=== PATIENT | male | born 1960 | race Caucasian/White ===

== ENCOUNTER 2017-10-12 07:29 | Emergency (ER) | payer OTHER ==
[~2017-10-12 07:29] MED LIST: GLUC500T PO; LISI-538 PO; No Home Medications
[2017-10-12] MEDS ORDERED: VITA250L PO (07:35)
[2017-10-12] MEDS ORDERED: ASPI81TA85 PO (07:35)
[2017-10-12] MEDS ORDERED: OXYMETAZOLINE NASAL SPRAY (AFRIN) ONE (08:15)
[2017-10-12 08:56] LABS: ANION GAP 7 MEQ/L (8-16); BLOOD UREA NITROGEN 15 MG/DL (7-18); CALCIUM LEVEL 8.9 MG/DL (8.5-10.1); CARBON DIOXIDE LEVEL 24 MEQ/L (21-32); CHLORIDE LEVEL 100 MEQ/L (98-107); CREATININE FOR GFR 0.76 MG/DL (0.70-1.30); GLOMERULAR FILTRATION RATE > 60.0 (>56); GLUCOSE, FASTING 213 MG/DL (70-105); SODIUM LEVEL 131 MEQ/L (136-145)
[2017-10-12] MEDS ORDERED: METF500T13 PO (09:57)
[2017-10-12] MEDS ORDERED: LISI-538 PO (09:57)
[2017-10-12 10:21] VITALS: BP 186/96
== END 2017-10-12 10:22 | disposition home or self-care (01) ==
LOC: M ED 07:29 → EDBD 07:29 → M ED 10:22
DX: R04.0 Epistaxis (principal); E11.9 Type 2 diabetes mellitus without complications; I25.2 Old myocardial infarction; I25.10 Atherosclerotic heart disease of native coronary artery without angina pectoris; I10 Essential (primary) hypertension; Z79.82 Long term (current) use of aspirin; Z79.899 Other long term (current) drug therapy; Z79.84 Long term (current) use of oral hypoglycemic drugs

== ENCOUNTER 2019-07-31 19:14 | Emergency (ER) | payer OTHER ==
[~2019-07-31] VITALS: Ht 188 cm; Wt 131.8 kg
[~2019-07-31 19:14] MED LIST changes: +ASPI81TA85 PO; +METF500T13 PO; +VITA250L PO
[2019-07-31 19:42] LABS: BASO # 0.1 10^3/uL (0.0-0.2); BASO % 0.7 % (0.0-1.0); EOS # 0.3 10^3/uL (0.0-0.5); EOS % 2.3 % (0.0-3.0); HEMATOCRIT 44.2 % (42.0-52.0); HEMOGLOBIN 14.9 g/dl (13.5-17.5); LYMPH # 2.8 10^3/uL (1.5-5.0); LYMPH % 26.2 % (24.0-44.0); MEAN CORPUSCULAR HEMOGLOBIN 32.1 pg (27.0-33.0); MEAN CORPUSCULAR HGB CONC 33.7 g/dl (32.0-36.5); MEAN CORPUSCULAR VOLUME 95.3 fl (80.0-96.0); MONO # 0.9 10^3/uL (0.0-0.8); MONO % 8.5 % (0.0-5.0); NEUTROPHILS # 6.6 10^3/uL (1.5-8.5); PLATELET COUNT, AUTOMATED 319 10^3/uL (150-450); RED BLOOD COUNT 4.64 10^6/uL (4.30-6.10); WHITE BLOOD COUNT 10.7 10^3/uL (4.0-10.0)
[2019-07-31] MEDS ORDERED: IPRATROPIUM 0.5MG/ALBUTEROL 2.5MG INH SOL UD 3ML (DUONEB)(J7620) NEB ONE (19:45)
[2019-07-31] MEDS ORDERED: ALBUTEROL SULFATE 2.5 MG/0.5 ML INH NEB SOLN INH ONE (19:45)
[2019-07-31 19:57] LABS: INR 0.99; PROTHROMBIN TIME 12.8 SECONDS (11.8-14.0)
--- NOTE | 2019-07-31 19:57 | REP ---
REASON: Chest pain. The technique utilized in obtaining the radiograph has magnified the cardiac silhouette and accentuated the interstitial markings. The superior mediastinal structures are midline. The cardiac silhouette is unremarkable in size, shape, and position. The diaphragmatic surfaces of the lungs are regular, and the costophrenic angles are clear. The pulmonary noyola are clear. The imaged osseous structures are intact. IMPRESSION: There is no acute cardiopulmonary disease. No change from the prior exam of 05/09/2016. Electronically Signed by Sunny Trevino DO 08/01/2019 11:05 A
[2019-07-31 20:06] LABS: ALBUMIN 3.2 GM/DL (3.2-5.2); ALT/SGPT 37 U/L (12-78); BILIRUBIN,DIRECT < 0.1 MG/DL (0.0-0.2); BILIRUBIN,TOTAL 0.2 MG/DL (0.2-1.0); CK-MB VALUE MASS 16.4 NG/ML (<3.6); CPK CREATINE PHOSPHOKINASE 772 U/L (39-308); LIPASE 364 U/L (73-393); MB/CK RELATIVE INDEX 2.12 (< OR =4); TOTAL PROTEIN 7.2 GM/DL (6.4-8.2); TROPONIN I < 0.02 NG/ML (< 0.10)
[2019-07-31] MEDS ORDERED: GI COCKTAIL 50ML BTL(HYOSCYAMINE/MAALOX/LIDOCAINE VISCOUS)(1:3:1) PO ONE (21:45)
[2019-07-31] MEDS ORDERED: dexameTHASONE 20 MG/5 ML VIAL (J1100) IV ONE (21:45)
[2019-07-31 23:35] LABS: CK-MB VALUE MASS 11.9 NG/ML (<3.6); CPK CREATINE PHOSPHOKINASE 598 U/L (39-308); MB/CK RELATIVE INDEX 1.99 (< OR =4); TROPONIN I < 0.02 NG/ML (< 0.10)
[2019-07-31 23:43] LABS: ERYTHROCYTE SEDIMENTATION RATE 10 mm/hr (0-20)
[2019-08-01] MEDS ORDERED: IBUPOTC PO (00:16)
[2019-08-01 00:17] LABS: NT-PRO BNP 405 PG/ML (<125)
[2019-08-01] MEDS ORDERED: PRED20TA PO (00:57)
[2019-08-01 01:00] VITALS: BP 160/72
--- NOTE | 2019-08-01 21:33 | ECGEPIP ---
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
--- NOTE | 2019-08-01 21:34 | ECGEPIP ---
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
== END 2019-08-01 01:44 | disposition home or self-care (01) ==
LOC: M ED 19:14
DX: J44.1 Chronic obstructive pulmonary disease with (acute) exacerbation (principal); R94.31 Abnormal electrocardiogram [ECG] [EKG]; E11.9 Type 2 diabetes mellitus without complications; I10 Essential (primary) hypertension; E78.5 Hyperlipidemia, unspecified; Z87.891 Personal history of nicotine dependence; Z79.82 Long term (current) use of aspirin
CPT/HCPCS: 71045; 80047; 80076; 82550; 82553; 83690; 83880; 85025; 85610; 85652; 86140; 93005; 93041; 94640; 94760; 96374; 99285; J1100

== ENCOUNTER 2021-01-01 10:04 | Emergency (ER) | payer OTHER ==
[~2021-01-01] VITALS: Ht 175.3 cm; Wt 127.3 kg
[~2021-01-01 10:04] MED LIST changes: -ASPI81TA85 PO; +ASPI81TA86 PO; +IBUPOTC PO; -LISI-538 PO; +LISI20TA33 PO; +PRED20TA PO
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
--- OUTSIDE RECORDS SUMMARY | 2021-01-01 11:06 | CCD ---
Author Author [facility] [place] [facility] Address Unknown Phone Unavailable Support Name Relationship Address Phone SHAUNA CHRISTOPHER Next Of Kin [id number] [place] [address] UE Next Of Kin Unknown Unavailable TRINA CHRISTOPHER Next Of Kin [address] [place] [address] Re-disclosure Warning The records that you are about to access may contain information from federally-assisted alcohol or drug abuse programs. If such information is present, then the following federally mandated warning applies: This information has been disclosed to you from records protected by federal confidentiality rules (42 CFR part 2). The federal rules prohibit you from making any further disclosure of this information unless further disclosure is expressly permitted by the written consent of the person to whom it pertains or as otherwise permitted by 42 CFR part 2. A general authorization for the release of medical or other information is NOT sufficient for this purpose. The Federal rules restrict any use of the information to criminally investigate or prosecute any alcohol or drug abuse patient.The records that you are about to access may contain highly sensitive health information, the redisclosure of which is protected by Article 27-F of the [facility] Public Health law. If you continue you may have access to information: Regarding HIV / AIDS; Provided by facilities licensed or operated by the [facility] Office of Mental Health; or Provided by the [facility] Office for People With Developmental Disabilities. If such information is present, then the following [facility] mandated warning applies: This information has been disclosed to you from confidential records which are protected by state law. State law prohibits you from making any further disclosure of this information without the specific written consent of the person to whom it pertains, or as otherwise permitted by law. Any unauthorized further disclosure in violation of state law may result in a fine or chcf sentence or both. A general authorization for the release of medical or other information is NOT sufficient authorization for further disc losure. Insurance Providers Payer name Policy type / Coverage type Policy ID Covered republican ID Covered republican's relationship to martínez Policy Martínez Plan Information REPLACED BY [facility] [id number] SP [id number] [facility] O [id number] S [id number] [facility] [id number] SP [id number] [facility] O [id number] S [id number] MEDICAID M [id number] S [id number] MEDICAID [id number] SP [id number] REPLACED BY [facility] [id number] SP [id number]
[2021-01-01 12:09] VITALS: BP 192/98
== END 2021-01-01 12:25 | disposition left against medical advice (07) ==
LOC: M ED 10:04
DX: S60.211A Contusion of right wrist, initial encounter (principal); Y04.8XXA Assault by other bodily force, initial encounter; Y07.04 Female partner, perpetrator of maltreatment and neglect; Y92.019 Unspecified place in single-family (private) house as the place of occurrence of the external cause; Y93.9 Activity, unspecified; Y99.9 Unspecified external cause status; M19.031 Primary osteoarthritis, right wrist; M85.641 Other cyst of bone, right hand; I10 Essential (primary) hypertension; E11.9 Type 2 diabetes mellitus without complications; I25.2 Old myocardial infarction; Z87.891 Personal history of nicotine dependence; Z79.82 Long term (current) use of aspirin; Z79.899 Other long term (current) drug therapy

== ENCOUNTER 2021-11-09 21:33 | Emergency (ER) | payer OTHER ==
[~2021-11-09] VITALS: Ht 190.5 cm; Wt 129.4 kg
[2021-11-09 23:21] LABS: BASO # 0.1 10^3/uL (0.0-0.2); BASO % 0.7 % (0.0-1.0); EOS # 0.3 10^3/uL (0.0-0.5); EOS % 2.7 % (0.0-3.0); HEMATOCRIT 46.5 % (42.0-52.0); HEMOGLOBIN 15.6 g/dl (13.5-17.5); LYMPH # 3.1 10^3/uL (1.5-5.0); LYMPH % 25.1 % (24.0-44.0); MEAN CORPUSCULAR HEMOGLOBIN 32.1 pg (27.0-33.0); MEAN CORPUSCULAR HGB CONC 33.5 g/dl (32.0-36.5); MEAN CORPUSCULAR VOLUME 95.7 fl (80.0-96.0); MONO # 0.8 10^3/uL (0.0-0.8); MONO % 6.9 % (2.0-8.0); NEUTROPHILS # 7.9 10^3/uL (1.5-8.5); NEUTROPHILS % 64.2 % (36.0-66.0); PLATELET COUNT, AUTOMATED 280 10^3/uL (150-450); RED BLOOD COUNT 4.86 10^6/uL (4.30-6.10); WHITE BLOOD COUNT 12.3 10^3/uL (4.0-10.0)
[2021-11-09 23:42] LABS: ALT/SGPT 57 U/L (12-78); BILIRUBIN,DIRECT < 0.1 MG/DL (0.0-0.2); BILIRUBIN,TOTAL 0.4 MG/DL (0.2-1.0); BLOOD UREA NITROGEN 12 MG/DL (7-18); CALCIUM LEVEL 8.4 MG/DL (8.8-10.2); CARBON DIOXIDE LEVEL 26 MEQ/L (21-32); CHLORIDE LEVEL 99 MEQ/L (98-107); GLOMERULAR FILTRATION RATE > 60.0 (>49); GLUCOSE, FASTING 224 MG/DL (70-100); LIPASE 337 U/L (73-393); POTASSIUM SERUM 4.2 MEQ/L (3.5-5.1); SODIUM LEVEL 132 MEQ/L (136-145)
[2021-11-09 23:58] LABS: CK-MB VALUE MASS 22.1 NG/ML (<3.6); MB/CK RELATIVE INDEX 2.01 (< OR =4)
[2021-11-10] MEDS ORDERED: hydrALAZINE 20MG/ML 1ML VIAL (J0360 PER 20MG) IV ONE (00:10)
--- NOTE | 2021-11-10 00:39 | REPVR ---
PROCEDURE INFORMATION: Exam: XR Chest Exam date and time: 11/09/2021 11:32 PM Age: 61 years old Clinical indication: Pain; Other: Not specified; Additional info: Chest pain TECHNIQUE: Imaging protocol: XR of the chest. Views: 2 views. COMPARISON: CR PORTABLE CHEST X-RAY 07/31/2019 7:34 PM. Prior report has not been made available for review at the time of this emergent interpretation, however was requested. FINDINGS: LUNGS and PLEURAL SPACE: The lungs are symmetrically expanded. Lung volumes are within normal limits. No evidence of peribronchial thickening. There is no consolidation, pneumothorax, or pleural effusion. No evidence of pulmonary vascular redistribution or overt edema. - MEDIASTINUM: There is no mediastinal shift or widening. - CARDIAC SILHOUETTE: Cardiothoracic ratio is within normal limits. - BONY THORAX: No acute findings are seen. - IMPRESSION: No radiographic evidence for acute disease in the chest. Electronically signed by: Tony Hernandez On 11/10/2021 00:39:20 AM
[2021-11-10] MEDS ORDERED: ISOVUE-370 76% 100ML VIAL As Ordered ONE (01:07)
[2021-11-10 01:34] LABS: HEMOGLOBIN A1c 10.7 %
--- NOTE | 2021-11-10 02:12 | REPVR ---
PROCEDURE INFORMATION: Exam: CTA Chest With Contrast Exam date and time: 11/10/2021 1:03 AM Age: 61 years old Clinical indication: Pain; Other: Back; Additional info: Uncontrolled HTN, cp, back pain, R/O dissection TECHNIQUE: Imaging protocol: Computed tomographic angiography of the chest with contrast. 3D rendering (Not supervised by radiologist): MIP and/or 3D reconstructed images were created by the technologist. Radiation optimization: All CT scans at this facility use at least one of these dose optimization techniques: automated exposure control; mA and/or kV adjustment per patient size (includes targeted exams where dose is matched to clinical indication); or iterative reconstruction. Contrast material: ISO; Contrast volume: 100 ml; Contrast route: INTRAVENOUS (IV); COMPARISON: CR Chest, 2 view PA, Lat 11/09/2021 11:18 PM FINDINGS: PULMONARY ARTERIES: Diameter of the main pulmonary trunk at 3.3 cm could be correlated for mild pulmonary arterial hypertension. Enhancement within the pulmonary arteries is preserved bilaterally through the segmental levels, without evidence for acute occlusive pulmonary emboli. This study is not optimized for evaluation of smaller distal branches beyond the segmental levels. - HEART AND AORTA: Cardiothoracic ratio is at the upper end of normal. No significant pericardial effusion. Calcific densities are seen at the aortic and mitral valves. Coronary arterial calcifications noted. Evaluation of the aortic arch and ascending thoracic aorta is compromised by cardiac motion artifact. No thoracic aortic aneurysm or dissection is seen otherwise. Maximal aortic diameter is at the upper end of normal, measuring 3.9 cm at the ascending aorta. There is thoracic aortic atherosclerosis. Visualized proximal great vessels within the superior mediastinum are patent. - MEDIASTINUM: No mediastinal soft tissue gas. The visualized thyroid gland is within normal limits. No mediastinal hematoma. No hiatal hernia or periesophageal inflammatory change. Mediastinal and hilar lymph nodes are noted but no lymphadenopathy by size criteria. - LUNGS: The lungs are symmetrically expanded. There is no consolidation, pneumothorax or pleural effusion. A few emphysematous blebs are noted. Mild dependent atelectasis. No suspicious pulmonary parenchymal mass. No bronchiectasis or peribronchial thickening. - UPPER ABDOMEN: Please refer to same-day CT abdomen report for complete findings. - MSK AND BODY WALL: Degenerative changes of the spine and bony thorax are noted. No acute fracture or suspicious bone lesion is seen. IMPRESSION: Evaluation of the aortic root and ascending thoracic aorta is slightly compromised by motion artifact. No thoracic aortic aneurysm or dissection is seen otherwise. - There is coronary artery disease. - No evidence of central pulmonary emboli to the segmental levels. - Other incidental findings discussed above. Electronically signed by: Tony Hernandez On 11/10/2021 02:11:56 AM
--- NOTE | 2021-11-10 02:23 | REPVR ---
PROCEDURE INFORMATION: Exam: CTA Abdomen and Pelvis With Contrast Exam date and time: 11/10/2021 1:03 AM Age: 61 years old Clinical indication: Abdominal pain; Generalized; Additional info: Uncontrolled HTN, cp, back pain, R/O dissection TECHNIQUE: Imaging protocol: Computed tomographic angiography of the abdomen and pelvis with contrast material. 3D rendering (Not supervised by radiologist): MIP and/or 3D reconstructed images were created by the technologist. Radiation optimization: All CT scans at this facility use at least one of these dose optimization techniques: automated exposure control; mA and/or kV adjustment per patient size (includes targeted exams where dose is matched to clinical indication); or iterative reconstruction. Contrast material: ISO; Contrast volume: 100 ml; Contrast route: INTRAVENOUS (IV); COMPARISON: None FINDINGS: LUNG BASES: Please refer to same-day CT chest report for findings. - VASCULAR: No abdominoaortic aneurysm, dissection or retroperitoneal hematoma. There is calcified and slightly irregular noncalcified aortoiliac atherosclerosis. There is femoral and visceral arterial atherosclerosis. The celiac artery and superior mesenteric artery are a single branch off the aorta as anatomic variant. This vessel is patent. Bilateral renal arteries are patent. The inferior mesenteric artery is patent. - PERITONEAL : No free air or free fluid. - GI: No hiatal hernia. The stomach contains some ingested material, fluid and gas. The stomach is not sufficiently distended to evaluate wall thickening or for complete diagnostic evaluation by this exam. Non-specific fluid-filled loops of small bowel are seen. No appearance of a bowel obstruction. No focal mesenteric inflammation. Small nonspecific mesenteric lymph nodes are noted. Scattered fecal material and gas within portions of the colon and rectum. No evidence of acute diverticulitis. The appendix does not appear inflamed. - HEPATOBILIARY, PANCREAS, SPLEEN: Hepatic length is 22.4 cm. Attenuation of the liver is consistent with steatosis. No calcified gallstones or biliary dilation. No pancreatic inflammation. Spleen not enlarged. - ADRENALS, KIDNEYS, BLADDER, RETROPERITONEAL: Adrenals within normal limits. No hydronephrosis. Symmetric renal enhancement. Mild nonspecific bilateral perinephric stranding. Mildly distended urinary bladder. No perivesical stranding. Slight prominence of the prostate impressing along the base of the bladder. Prostate calcifications noted. There are calcifications of the vas deferens. This tends to be associated with underlying diabetes. No retroperitoneal lymphadenopathy by size criteria. - MUSCULOSKELETAL: Small fat containing umbilical hernia. Nonspecific skin thickening at the umbilicus. There is partial atrophy of the rectus abdominus muscles. Prominent fat extending into the inguinal canals. Degenerative changes of the lower lumbar spine with degenerative disc disease most pronounced at the L5/S1 level. No acute fracture or suspicious bone lesion. IMPRESSION: No evidence of abdominoaortic aneurysm or dissection. There is atherosclerotic disease. - No free-air, free-fluid or focal mesenteric inflammation. Nonspecific gastrointestinal findings. - Hepatic enlargement and fatty infiltration. - Other incidental findings discussed above. Electronically signed by: Tony Hernandez On 11/10/2021 02:23:03 AM
[2021-11-10 02:58] VITALS: BP 210/95
[2021-11-10 03:09] LABS: CK-MB VALUE MASS 18.9 NG/ML (<3.6); MB/CK RELATIVE INDEX 1.95 (< OR =4)
[2021-11-10 03:20] LABS: RSV AMPLIFICATION NEGATIVE (NEGATIVE)
[2021-11-10 04:30] VITALS: BP 175/82
[2021-11-10] MEDS ORDERED: glipiZIDE (GLUCOTROL) 5 MG TAB PO ONE (04:30)
[2021-11-10] MEDS ORDERED: GLUC1TAB6 PO (04:32)
[2021-11-10] MEDS ORDERED: LISI20TA33 PO (04:32)
--- NOTE | 2021-11-10 09:54 | ED PDOC ---
Post-Departure Follow-Up certified letter sent to pt re formal read of cta chest. see report needs fu. as k who pcp is and fax. if no pcp refer to [facility] and fax. Yobany Case MD Nov 10, 2021 09:54
--- NOTE | 2021-11-10 19:37 | ECGEPIP ---
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
--- NOTE | 2021-11-10 19:40 | ECGEPIP ---
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
== END 2021-11-10 04:45 | disposition home or self-care (01) ==
LOC: M ED 21:33
DX: I10 Essential (primary) hypertension (principal); E11.9 Type 2 diabetes mellitus without complications; I51.9 Heart disease, unspecified; E78.5 Hyperlipidemia, unspecified; Z95.5 Presence of coronary angioplasty implant and graft; Z86.79 Personal history of other diseases of the circulatory system; Z79.82 Long term (current) use of aspirin; Z79.84 Long term (current) use of oral hypoglycemic drugs
CPT/HCPCS: 71046; 71275; 74174; 80048; 80076; 82550; 82553; 83036; 83690; 85025; 87631; 93005; 96374; 99285; J0360; Q9967

== ENCOUNTER 2022-02-27 02:54 | Emergency (ER) | payer OTHER ==
[~2022-02-27] VITALS: Ht 193 cm; Wt 120.5 kg
[~2022-02-27 02:54] MED LIST changes: +GLUC1TAB6 PO
[2022-02-27 03:41] LABS: VENOUS BASE EXCESS -2.1 (-2.0-2.0); VENOUS HCO3 24.4 MEQ/L (23.0-27.0); VENOUS O2 SATURATION 92.3 % (60.0-80.0); VENOUS PARTIAL PRESSURE CO2 47.8 mmHg (38.0-50.0); VENOUS PARTIAL PRESSURE O2 67.7 mmHg (30.0-50.0); VENOUS PH 7.325 UNITS (7.330-7.430); VENOUS STANDARD HCO3 22.6 MEQ/L; VENOUS TOTAL CO2 25.8 MEQ/L (24.0-28.0)
[2022-02-27 03:45] LABS: BASO # 0.1 10^3/uL (0.0-0.2); BASO % 0.5 % (0.0-1.0); EOS # 0.2 10^3/uL (0.0-0.5); EOS % 1.6 % (0.0-3.0); HEMATOCRIT 44.8 % (42.0-52.0); HEMOGLOBIN 15.2 g/dl (13.5-17.5); LYMPH # 2.2 10^3/uL (1.5-5.0); LYMPH % 18.9 % (24.0-44.0); MEAN CORPUSCULAR HEMOGLOBIN 33.6 pg (27.0-33.0); MEAN CORPUSCULAR HGB CONC 33.9 g/dl (32.0-36.5); MEAN CORPUSCULAR VOLUME 99.1 fl (80.0-96.0); MONO # 0.7 10^3/uL (0.0-0.8); MONO % 5.7 % (2.0-8.0); NEUTROPHILS # 8.6 10^3/uL (1.5-8.5); NEUTROPHILS % 72.9 % (36.0-66.0); PLATELET COUNT, AUTOMATED 297 10^3/uL (150-450); RED BLOOD COUNT 4.52 10^6/uL (4.30-6.10); WHITE BLOOD COUNT 11.8 10^3/uL (4.0-10.0)
[2022-02-27 04:13] LABS: ALBUMIN 2.7 GM/DL (3.2-5.2); ALT/SGPT 87 U/L (12-78); BILIRUBIN,DIRECT < 0.1 MG/DL (0.0-0.2); BILIRUBIN,TOTAL 0.2 MG/DL (0.2-1.0); BLOOD UREA NITROGEN 11 MG/DL (7-18); CALCIUM LEVEL 8.3 MG/DL (8.8-10.2); CARBON DIOXIDE LEVEL 25 MEQ/L (21-32); CHLORIDE LEVEL 101 MEQ/L (98-107); CREATININE FOR GFR 0.85 MG/DL (0.70-1.30); GLOMERULAR FILTRATION RATE > 60.0 (>49); GLUCOSE, FASTING 367 MG/DL (70-100); NT-PRO BNP 845 PG/ML (<125); POTASSIUM SERUM 3.7 MEQ/L (3.5-5.1); SODIUM LEVEL 136 MEQ/L (136-145); TOTAL PROTEIN 6.4 GM/DL (6.4-8.2)
[2022-02-27 04:23] LABS: MB/CK RELATIVE INDEX 1.94 (< OR =4)
[2022-02-27] MEDS ORDERED: methylPREDNISolone 125MG 2ML VIAL IV ONE (04:40)
[2022-02-27] MEDS ORDERED: NS 1,000 ML IV ONE (04:40)
[2022-02-27] MEDS: COMBIVENT RESPIMAT 100-20MCG INHALER 4GM INH SCH ×2 (04:52→05:29)
[2022-02-27 04:53] LABS: ETHYL ALCOHOL (ETHANOL) 0.185 % (0.000-0.010)
[2022-02-27 05:19] LABS: CK-MB VALUE MASS 29.2 NG/ML (<3.6); MB/CK RELATIVE INDEX 1.92 (< OR =4)
[2022-02-27 06:36] LABS: ABG BASE EXCESS -3.5 (-2.0-2.0); ABG HCO3 23.1 MEQ/L (22.0-26.0); ABG O2 SATURATION 98.1 % (95.0-99.0); ABG PARTIAL PRESSURE CO2 47.4 mmHg (35.0-45.0); ABG PARTIAL PRESSURE O2 112.3 mmHg (75.0-100.0); ABG STANDARD HCO3 21.6 MEQ/L (22.0-26.0); ABG TOTAL CO2 24.6 MEQ/L (23.0-31.0); ABG pH (ARTERIAL) 7.306 UNITS (7.350-7.450)
[2022-02-27] MEDS ORDERED: FUROSEMIDE 40MG/4ML VIAL (J1940) IV ONE (07:20)
[2022-02-27 08:03] VITALS: O2SAT 97
[2022-02-27] MEDS ORDERED: VENTAER INH (09:10)
[2022-02-27 09:15] VITALS: BP 178/81
== END 2022-02-27 09:36 | disposition home or self-care (01) ==
LOC: M ED 02:54 → EDBD 02:54 → M ED 09:36
DX: J44.1 Chronic obstructive pulmonary disease with (acute) exacerbation (principal); I10 Essential (primary) hypertension; F17.200 Nicotine dependence, unspecified, uncomplicated; F10.10 Alcohol abuse, uncomplicated; Z79.811 Long term (current) use of aromatase inhibitors; Z79.51 Long term (current) use of inhaled steroids; Z79.899 Other long term (current) drug therapy
CPT/HCPCS: 36600; 71045; 80048; 80076; 82077; 82550; 82553; 82803; 83605; 83880; 85025; 87798; 93005; 93041; 94640; 94760; 96361; 96374; 99285; J2930

== ENCOUNTER → 2022-03-14 | Outpatient (CLI) | payer OTHER ==
[~2022-03-14] MED LIST changes: +VENTAER INH
== END ==
LOC: M RAD 15:55
PROVIDERS: ATTEND Physician Assistant Medical
DX: R05.9 Cough, unspecified (principal)

== ENCOUNTER 2022-07-02 15:26 | Emergency (ER) | payer OTHER ==
[~2022-07-02] VITALS: Ht 175.3 cm; Wt 132.9 kg
[2022-07-02] MEDS ORDERED: ACETAMINOPHEN 500 MG TAB PO ONE (17:30)
[2022-07-02 19:00] VITALS: BP 146/80
== END 2022-07-02 19:27 | disposition home or self-care (01) ==
LOC: M ED 15:26
DX: S00.93XA Contusion of unspecified part of head, initial encounter (principal); S16.1XXA Strain of muscle, fascia and tendon at neck level, initial encounter; F07.81 Postconcussional syndrome; Y04.0XXA Assault by unarmed brawl or fight, initial encounter; Y92.89 Other specified places as the place of occurrence of the external cause; Y93.9 Activity, unspecified; Y99.9 Unspecified external cause status

== ENCOUNTER 2022-10-16 22:02 | Inpatient (IN) | payer OTHER ==
[~2022-10-16] VITALS: Ht 172.7 cm; Wt 129.5 kg
[2022-10-16 22:48] LABS: BASO # 0.1 10^3/uL (0.0-0.2); BASO % 0.7 % (0.0-1.0); EOS # 0.2 10^3/uL (0.0-0.5); EOS % 2.3 % (0.0-3.0); HEMATOCRIT 39.4 % (42.0-52.0); HEMOGLOBIN 12.9 g/dl (13.5-17.5); LYMPH # 1.9 10^3/uL (1.5-5.0); LYMPH % 19.5 % (24.0-44.0); MEAN CORPUSCULAR HEMOGLOBIN 32.3 pg (27.0-33.0); MEAN CORPUSCULAR HGB CONC 32.7 g/dl (32.0-36.5); MEAN CORPUSCULAR VOLUME 98.7 fl (80.0-96.0); MONO # 0.7 10^3/uL (0.0-0.8); NEUTROPHILS # 6.9 10^3/uL (1.5-8.5); NEUTROPHILS % 70.1 % (36.0-66.0); PLATELET COUNT, AUTOMATED 281 10^3/uL (150-450); RED BLOOD COUNT 3.99 10^6/uL (4.30-6.10); WHITE BLOOD COUNT 9.9 10^3/uL (4.0-10.0)
[2022-10-16 23:07] LABS: CK-MB VALUE MASS 13.4 NG/ML (<3.6)
[2022-10-16 23:08] LABS: CPK CREATINE PHOSPHOKINASE 507 U/L (46-171); MB/CK RELATIVE INDEX 2.64 (< OR =4)
[2022-10-16 23:09] LABS: BLOOD UREA NITROGEN 23 MG/DL (9-23); CALCIUM LEVEL 8.2 MG/DL (8.3-10.6); CARBON DIOXIDE LEVEL 26 MMOL/L (20-31); CHLORIDE LEVEL 99 MMOL/L (98-107); CREATININE FOR GFR 0.87 MG/DL (0.70-1.30); GLOMERULAR FILTRATION RATE > 60.0 (>49); GLUCOSE, FASTING 350 MG/DL (74-106); POTASSIUM SERUM 4.1 MMOL/L (3.5-5.1); SODIUM LEVEL 133 MMOL/L (136-145)
[2022-10-16] MEDS ORDERED: NITROGLYCERIN 2% OINT 1 GM *U/D* PKT TOP ONE (23:25)
[2022-10-16] MEDS ORDERED: FUROSEMIDE 40MG/4ML VIAL (J1940) IV ONE (23:25)
[2022-10-17 00:31] LABS: ALBUMIN 2.4 G/DL (3.2-5.2); ALKALINE PHOSPHATASE 64 U/L (46-116); ALT/SGPT 40 U/L (7.0-40); AST/SGOT 19 U/L (<34); BILIRUBIN,DIRECT < 0.1 MG/DL (<0.4); BILIRUBIN,TOTAL 0.3 MG/DL (0.3-1.2); TOTAL PROTEIN 5.8 G/DL (5.7-8.2)
[2022-10-17 00:34] LABS: MB/CK RELATIVE INDEX 2.03 (< OR =4)
[2022-10-17] MEDS ORDERED: ISOVUE-370 76% 100ML VIAL As Ordered ONE (02:33)
[2022-10-17] MEDS ORDERED: HOME MED LIST COMPLETE! XX SCH (03:25)
[2022-10-17] MEDS ORDERED: DEXTROSE 50% 50 ML SYRINGE IV PRN (05:15)
[2022-10-17] MEDS ORDERED: GLUCOSE 4GM CHEW TABLET PO PRN (05:15)
[2022-10-17] MEDS ORDERED: GLUCAGON INJ 1MG VIAL SC PRN (05:15)
[2022-10-17] MEDS ORDERED: ACETAMINOPHEN TAB 650MG DOSE (2X325MG) PO PRN (05:15)
[2022-10-17] MEDS ORDERED: ALBUTEROL 90 MCG/ACT 8GM HFA INHALER INH PRN (06:30)
[2022-10-17 06:41] LABS: VENOUS BASE EXCESS 2.4 (-2.0-2.0); VENOUS HCO3 25.1 MEQ/L (23.0-27.0); VENOUS O2 SATURATION 99.3 % (60.0-80.0); VENOUS PARTIAL PRESSURE CO2 33.5 mmHg (38.0-50.0); VENOUS PARTIAL PRESSURE O2 145.6 mmHg (30.0-50.0); VENOUS PH 7.493 UNITS (7.330-7.430); VENOUS STANDARD HCO3 26.6 MEQ/L; VENOUS TOTAL CO2 26.2 MEQ/L (24.0-28.0)
[2022-10-17 06:47] LABS: BASO # 0.1 10^3/uL (0.0-0.2); BASO % 0.8 % (0.0-1.0); EOS # 0.2 10^3/uL (0.0-0.5); EOS % 2.1 % (0.0-3.0); HEMATOCRIT 40.6 % (42.0-52.0); HEMOGLOBIN 13.1 g/dl (13.5-17.5); LYMPH # 1.8 10^3/uL (1.5-5.0); LYMPH % 19.5 % (24.0-44.0); MEAN CORPUSCULAR HEMOGLOBIN 32.1 pg (27.0-33.0); MEAN CORPUSCULAR HGB CONC 32.3 g/dl (32.0-36.5); MEAN CORPUSCULAR VOLUME 99.5 fl (80.0-96.0); MONO # 0.6 10^3/uL (0.0-0.8); MONO % 7.1 % (2.0-8.0); NEUTROPHILS # 6.3 10^3/uL (1.5-8.5); NEUTROPHILS % 70.3 % (36.0-66.0); PLATELET COUNT, AUTOMATED 293 10^3/uL (150-450); RED BLOOD COUNT 4.08 10^6/uL (4.30-6.10)
[2022-10-17 07:05] LABS: LIPASE 37 U/L (12-53); MAGNESIUM LEVEL 1.6 MG/DL (1.8-2.4)
[2022-10-17 07:06] LABS: BLOOD UREA NITROGEN 20 MG/DL (9-23); CALCIUM LEVEL 8.1 MG/DL (8.3-10.6); CARBON DIOXIDE LEVEL 27 MMOL/L (20-31); CHLORIDE LEVEL 99 MMOL/L (98-107); CHOLESTEROL LEVEL 176 MG/DL (<200); CREATININE FOR GFR 0.86 MG/DL (0.70-1.30); GLOMERULAR FILTRATION RATE > 60.0 (>49); GLUCOSE, FASTING 326 MG/DL (74-106); HDL CHOLESTEROL 46.3 MG/DL (>40); LDL CHOLESTEROL 112.3 MG/DL (<100); NON-HDL-C 130 MG/DL; POTASSIUM SERUM 4.2 MMOL/L (3.5-5.1); SODIUM LEVEL 134 MMOL/L (136-145); TRIGLYCERIDES LEVEL 87 MG/DL (<150)
[2022-10-17 07:07] LABS: PERCENT SATURATION 10.6 % (19.7-50.0)
[2022-10-17 07:09] LABS: FERRITIN 184.3 NG/ML (10.5-307.3)
[2022-10-17 07:22] LABS: HEMOGLOBIN A1c 12.2 % (4.0-6.0)
[2022-10-17] MEDS: INSULIN LISPRO (NovoLOG) PER UNIT SC SCH ×3 (07:43→17:57)
[2022-10-17] MEDS ORDERED: ENOXAPARIN 40MG/0.4ML SYRINGE (J1650 PER 10MG) SC SCH (09:00)
[2022-10-17] MEDS: FUROSEMIDE 40MG/4ML VIAL (J1940) IV SCH (11:02)
[2022-10-17] MEDS: cefTRIAXone SOD 1 GM in D5W MINI-BAG PLUS 50 ML IV SCH (11:03)
[2022-10-17] MEDS: DOXYCYCLINE HYCLATE 100MG TABLET PO SCH ×2 (11:03→21:11)
[2022-10-17] MEDS ORDERED: amLODIPine 5 MG TAB PO SCH (12:00)
[2022-10-17] MEDS: CLOTRIMAZOLE 1% TOPICAL CREAM 30GM TOP SCH ×2 (14:46→21:00)
[2022-10-17] MEDS ORDERED: GABAPENTIN 100 MG CAP PO ONE (18:05)
[2022-10-17 19:10] LABS: INR 0.98; PROTHROMBIN TIME 13.2 SECONDS (12.5-14.5)
[2022-10-17 19:11] LABS: PARTIAL THROMBOPLASTIN TIME 25.2 SECONDS (24.8-34.2)
[2022-10-17] MEDS ORDERED: ATORVASTATIN 20 MG TAB PO SCH (21:00)
[2022-10-17] MEDS ORDERED: LEVEMIR (INSULIN DETEMIR) 1 UNITS/0.01ML SC SCH (21:00)
[2022-10-17] MEDS ORDERED: INSULIN LISPRO (NovoLOG) PER UNIT SC SCH (21:00)
[2022-10-17] MEDS: APIXABAN 5 MG TAB (ELIQUIS) PO SCH (21:11)
[2022-10-17] MEDS: amLODIPine 5 MG TAB PO SCH (21:12)
[2022-10-17 22:00] VITALS: BP 164/72
[2022-10-17 22:58] LABS: FOLATE 13.34 NG/ML (>5.4)
[2022-10-18] VITALS (10 sets, daily range): BP systolic 144–147; BP diastolic 67–73; O2SAT 93–96
[2022-10-18 05:21] LABS: GC DNA AMPLIFICATION NEGATIVE (NEGATIVE)
[2022-10-18 05:30] LABS: HEMATOCRIT 40.6 % (42.0-52.0); HEMOGLOBIN 12.9 g/dl (13.5-17.5); MEAN CORPUSCULAR HEMOGLOBIN 31.9 pg (27.0-33.0); MEAN CORPUSCULAR HGB CONC 31.8 g/dl (32.0-36.5); MEAN CORPUSCULAR VOLUME 100.5 fl (80.0-96.0); PLATELET COUNT, AUTOMATED 277 10^3/uL (150-450); RED BLOOD COUNT 4.04 10^6/uL (4.30-6.10); WHITE BLOOD COUNT 8.2 10^3/uL (4.0-10.0)
[2022-10-18 06:03] LABS: MAGNESIUM LEVEL 1.6 MG/DL (1.8-2.4)
[2022-10-18 06:04] LABS: BLOOD UREA NITROGEN 17 MG/DL (9-23); CALCIUM LEVEL 7.8 MG/DL (8.3-10.6); CARBON DIOXIDE LEVEL 29 MMOL/L (20-31); CHLORIDE LEVEL 97 MMOL/L (98-107); CREATININE FOR GFR 0.82 MG/DL (0.70-1.30); GLOMERULAR FILTRATION RATE > 60.0 (>49); GLUCOSE, FASTING 248 MG/DL (74-106); PHOSPHORUS LEVEL 3.8 MG/DL (2.4-5.1); POTASSIUM SERUM 4.5 MMOL/L (3.5-5.1); SODIUM LEVEL 133 MMOL/L (136-145)
[2022-10-18] MEDS: DOXYCYCLINE HYCLATE 100MG TABLET PO SCH (08:26)
[2022-10-18] MEDS: FUROSEMIDE 40MG/4ML VIAL (J1940) IV SCH (08:26)
[2022-10-18] MEDS: cefTRIAXone SOD 1 GM in D5W MINI-BAG PLUS 50 ML IV SCH (08:26)
[2022-10-18] MEDS: amLODIPine 5 MG TAB PO SCH (08:27)
[2022-10-18] MEDS: APIXABAN 5 MG TAB (ELIQUIS) PO SCH (08:27)
[2022-10-18] MEDS: INSULIN LISPRO (NovoLOG) PER UNIT SC SCH ×3 (08:28→12:00)
[2022-10-18] MEDS ORDERED: FERROUS SULFATE 325MG TAB PO SCH (09:00)
[2022-10-18] MEDS ORDERED: METOPROLOL TART 25 MG TABLET PO SCH (09:00)
[2022-10-18] MEDS ORDERED: FUROSEMIDE 40MG/4ML VIAL (J1940) IV ONE (09:25)
[2022-10-18] MEDS ORDERED: MAG SULF 1GM/100ML (MAG RUN) 1 GM in IV 1 EA IV ONE (10:00)
[2022-10-18] MEDS: CLOTRIMAZOLE 1% TOPICAL CREAM 30GM TOP SCH (10:10)
[2022-10-18] MEDS ORDERED: PEN1MIS21 SC (11:04)
[2022-10-18] MEDS ORDERED: LISI20TA33 PO (11:04)
[2022-10-18] MEDS ORDERED: GLUC1TES2 XX ×2 (11:04→12:47)
[2022-10-18] MEDS ORDERED: LANC30MI XX (11:04)
[2022-10-18] MEDS ORDERED: BLOOKIT21 SC (11:04)
[2022-10-18] MEDS ORDERED: METO1TAB32 PO (11:04)
[2022-10-18] MEDS ORDERED: ASPI81TA26 PO (11:04)
[2022-10-18] MEDS ORDERED: ELIQ5TAB PO (11:04)
[2022-10-18] MEDS ORDERED: ALCOPAD25 TOP ×2 (11:04→14:39)
[2022-10-18] MEDS ORDERED: ATOR80TA59 PO (11:04)
[2022-10-18] MEDS ORDERED: BASA100I SC ×2 (11:04→14:39)
[2022-10-18] MEDS ORDERED: LASI40TA9 PO (11:04)
[2022-10-18] MEDS ORDERED: METF500T13 PO (11:04)
[2022-10-18] MEDS ORDERED: PRIL20TA2 PO (11:04)
[2022-10-18] MEDS ORDERED: CIPR-249 PO (11:08)
[2022-10-18] MEDS ORDERED: MAG-84TA PO (11:08)
[2022-10-18] MEDS ORDERED: metFORMIN (GLUCOPHAGE) 500MG TAB PO SCH (11:30)
[2022-10-18] MEDS ORDERED: PYRI1TAB5 PO (12:39)
[2022-10-18] MEDS ORDERED: MILKSUS3 PO (12:40)
[2022-10-18] MEDS ORDERED: SENO8.6T10 PO (12:40)
[2022-10-18] MEDS ORDERED: PHENAZOPYRIDINE 100 MG TAB PO SCH (12:40)
[2022-10-18] MEDS ORDERED: INSULIN LISPRO (NovoLOG) PER UNIT SC ONE (12:45)
[2022-10-18] MEDS ORDERED: BD P32MI SC (12:47)
[2022-10-18] MEDS ORDERED: HUMA100I5 SC (12:47)
[2022-10-18] MEDS ORDERED: FREEMIS42 TOP (12:47)
[2022-10-18] MEDS ORDERED: ADME100I SC (14:26)
[2022-10-18] MEDS ORDERED: METF-877 PO (14:39)
[2022-10-18] MEDS ORDERED: BLOOKIT21 XX (14:39)
[2022-10-18] MEDS ORDERED: ALBU6.7H6 INH (14:39)
[2022-10-18] MEDS ORDERED: ZOLO25TA PO (14:39)
[2022-10-18] MEDS ORDERED: SYMB16INH INH (14:39)
[2022-10-18] MEDS ORDERED: JARD1TAB3 PO (14:42)
[2022-10-18] MEDS ORDERED: FARX1TAB3 PO (15:18)
[2022-10-18] MEDS ORDERED: ADVA115A INH (15:18)
[2022-10-19] MEDS ORDERED: [UNRECOGNIZED DRUG - CODE] SC (07:12)
== END 2022-10-18 16:45 | disposition home or self-care (01) | DRG 201 ==
LOC: EDBD 22:02 → M ED 22:02 → M ED INP 10-17 05:12 → M PCU 10-17 21:59
PROVIDERS: ADMIT Internal Medicine; ATTEND Internal Medicine
DX: I48.92 Unspecified atrial flutter (principal); J90 Pleural effusion, not elsewhere classified; E11.21 Type 2 diabetes mellitus with diabetic nephropathy; E11.319 Type 2 diabetes mellitus with unspecified diabetic retinopathy without macular edema; E66.01 Morbid (severe) obesity due to excess calories; E87.1 Hypo-osmolality and hyponatremia; Z68.43 Body mass index [BMI] 50.0-59.9, adult; I10 Essential (primary) hypertension; I16.0 Hypertensive urgency; I25.10 Atherosclerotic heart disease of native coronary artery without angina pectoris; J44.9 Chronic obstructive pulmonary disease, unspecified; N39.0 Urinary tract infection, site not specified; E78.5 Hyperlipidemia, unspecified; Z91.14 Patient's other noncompliance with medication regimen; F43.10 Post-traumatic stress disorder, unspecified; Z79.899 Other long term (current) drug therapy; Z87.891 Personal history of nicotine dependence; I25.2 Old myocardial infarction; Z79.82 Long term (current) use of aspirin; Z79.4 Long term (current) use of insulin

== ENCOUNTER 2022-10-19 01:08 | Emergency (ER) | payer OTHER ==
[~2022-10-19] VITALS: Ht 172.7 cm; Wt 129.1 kg
[~2022-10-19 01:08] MED LIST changes: +ADME100I SC; +ADVA115A INH; +ALBU6.7H6 INH; +ALCOPAD25 TOP; +ASPI81TA26 PO; +ATOR80TA59 PO; +BASA100I SC; +BD P32MI SC; +BLOOKIT21 SC; +BLOOKIT21 XX; +CIPR-249 PO; +ELIQ5TAB PO; +FARX1TAB3 PO; +FREEMIS42 TOP; +GLUC1TES2 XX; +HUMA100I5 SC; +JARD1TAB3 PO; +LANC30MI XX; +LASI40TA9 PO; +MAG-84TA PO; +METF-877 PO; +METO1TAB32 PO; +MILKSUS3 PO; +PEN1MIS21 SC; +PRIL20TA2 PO; +PYRI1TAB5 PO; +SENO8.6T10 PO; +SYMB16INH INH; +ZOLO25TA PO
[2022-10-19 04:25] VITALS: BP 136/76
[2022-10-19] MEDS ORDERED: [UNRECOGNIZED DRUG - CODE] SC (07:12)
[2022-10-19] MEDS ORDERED: INSULIN LISPRO (NovoLOG) PER UNIT SC ONE (07:55)
== END 2022-10-19 08:21 | disposition home or self-care (01) ==
LOC: M ED 01:08 → EDBD 01:08 → EDUNIT# 01:08 → M ED 08:21
DX: E11.65 Type 2 diabetes mellitus with hyperglycemia (principal); N39.0 Urinary tract infection, site not specified; I10 Essential (primary) hypertension; J44.9 Chronic obstructive pulmonary disease, unspecified; E78.5 Hyperlipidemia, unspecified; Z79.4 Long term (current) use of insulin; Z79.01 Long term (current) use of anticoagulants; Z79.51 Long term (current) use of inhaled steroids; Z79.811 Long term (current) use of aromatase inhibitors; Z79.899 Other long term (current) drug therapy

== ENCOUNTER 2022-11-03 21:18 | Emergency (ER) | payer OTHER ==
[~2022-11-03] VITALS: Ht 185.4 cm; Wt 129.2 kg
[~2022-11-03 21:18] MED LIST changes: +[UNRECOGNIZED DRUG - CODE] SC
[2022-11-04] MEDS ORDERED: LISI20TA33 PO (00:03)
[2022-11-04] MEDS ORDERED: BASA100I SC (00:03)
[2022-11-04] MEDS ORDERED: FURO40TA2 PO (00:03)
[2022-11-04] MEDS ORDERED: FLUTISP (00:03)
[2022-11-04] MEDS ORDERED: ADME100I2 SC (00:03)
[2022-11-04 01:15] VITALS: BP 144/73
== END 2022-11-04 01:16 | disposition home or self-care (01) ==
LOC: M ED 21:18
DX: Z76.0 Encounter for issue of repeat prescription (principal); J44.9 Chronic obstructive pulmonary disease, unspecified; E11.9 Type 2 diabetes mellitus without complications; I10 Essential (primary) hypertension; I25.2 Old myocardial infarction; F17.200 Nicotine dependence, unspecified, uncomplicated; Z86.79 Personal history of other diseases of the circulatory system; Z79.01 Long term (current) use of anticoagulants; Z79.4 Long term (current) use of insulin; Z79.811 Long term (current) use of aromatase inhibitors; Z79.899 Other long term (current) drug therapy

== ENCOUNTER 2022-11-17 16:52 | Emergency (ER) | payer OTHER ==
[~2022-11-17] VITALS: Ht 185.4 cm; Wt 113.6 kg
[~2022-11-17 16:52] MED LIST changes: +ADME100I2 SC; +FLUTISP; +FURO40TA2 PO
[2022-11-17] MEDS ORDERED: ELIQ5TAB PO (19:17)
[2022-11-17] MEDS ORDERED: ALBU6.7H6 INH (19:17)
[2022-11-17] MEDS ORDERED: [UNRECOGNIZED DRUG - CODE] SC (19:17)
[2022-11-17] MEDS ORDERED: ZOLO25TA PO (19:17)
[2022-11-17] MEDS ORDERED: PEN1MIS21 SC (19:17)
[2022-11-17] MEDS ORDERED: ADVA115A INH (19:17)
[2022-11-17] MEDS ORDERED: GLUC1TES2 XX (19:17)
[2022-11-17] MEDS ORDERED: METF-877 PO (19:17)
[2022-11-17] MEDS ORDERED: PRIL20TA2 PO (19:17)
[2022-11-17] MEDS ORDERED: ADME100I SC (19:17)
[2022-11-17] MEDS ORDERED: METO1TAB32 PO (19:17)
[2022-11-17] MEDS ORDERED: ALCOPAD25 TOP (19:17)
[2022-11-17] MEDS ORDERED: LASI40TA9 PO (19:17)
[2022-11-17] MEDS ORDERED: BD P32MI SC (19:17)
[2022-11-17] MEDS ORDERED: ATOR80TA59 PO (19:17)
[2022-11-17 19:36] VITALS: BP 170/96
== END 2022-11-17 19:44 | disposition home or self-care (01) ==
LOC: M ED 19:02
DX: Z76.0 Encounter for issue of repeat prescription (principal); I10 Essential (primary) hypertension; E11.40 Type 2 diabetes mellitus with diabetic neuropathy, unspecified; I25.2 Old myocardial infarction; J44.9 Chronic obstructive pulmonary disease, unspecified; Z79.84 Long term (current) use of oral hypoglycemic drugs; Z79.4 Long term (current) use of insulin; Z79.51 Long term (current) use of inhaled steroids; Z79.811 Long term (current) use of aromatase inhibitors; Z79.899 Other long term (current) drug therapy

== ENCOUNTER 2022-11-21 10:16 | Inpatient (IN) | payer OTHER ==
[~2022-11-21] VITALS: Ht 185.4 cm; Wt 130.8 kg
[2022-11-21] MEDS ORDERED: methylPREDNISolone 125MG 2ML VIAL IV ONE (12:15)
[2022-11-21] MEDS: IPRATROPIUM 0.5MG/ALBUTEROL 2.5MG INH SOL UD 3ML (DUONEB) NEB SCH ×3 (12:35→16:53)
[2022-11-21 12:48] LABS: BASO # 0.1 10^3/uL (0.0-0.2); BASO % 0.5 % (0.0-1.0); EOS # 0.3 10^3/uL (0.0-0.5); EOS % 3.2 % (0.0-3.0); HEMATOCRIT 39.5 % (42.0-52.0); HEMOGLOBIN 12.5 g/dl (13.5-17.5); LYMPH # 1.8 10^3/uL (1.5-5.0); LYMPH % 17.2 % (24.0-44.0); MEAN CORPUSCULAR HEMOGLOBIN 31.5 pg (27.0-33.0); MEAN CORPUSCULAR HGB CONC 31.6 g/dl (32.0-36.5); MEAN CORPUSCULAR VOLUME 99.5 fl (80.0-96.0); MONO # 0.7 10^3/uL (0.0-0.8); MONO % 6.4 % (2.0-8.0); NEUTROPHILS # 7.3 10^3/uL (1.5-8.5); NEUTROPHILS % 72.3 % (36.0-66.0); PLATELET COUNT, AUTOMATED 278 10^3/uL (150-450); RED BLOOD COUNT 3.97 10^6/uL (4.30-6.10); WHITE BLOOD COUNT 10.2 10^3/uL (4.0-10.0)
[2022-11-21 13:15] LABS: BLOOD UREA NITROGEN 25 MG/DL (9-23); CALCIUM LEVEL 8.9 MG/DL (8.3-10.6); CARBON DIOXIDE LEVEL 30 MMOL/L (20-31); CHLORIDE LEVEL 97 MMOL/L (98-107); CREATININE FOR GFR 0.85 MG/DL (0.70-1.30); GLOMERULAR FILTRATION RATE > 60.0 (>49); GLUCOSE, FASTING 165 MG/DL (74-106); POTASSIUM SERUM 4.2 MMOL/L (3.5-5.1); SODIUM LEVEL 136 MMOL/L (136-145)
[2022-11-21] MEDS ORDERED: FUROSEMIDE 40MG/4ML VIAL IV ONE (14:25)
[2022-11-21] MEDS ORDERED: ISOVUE-370 76% 100ML VIAL As Ordered ONE (17:18)
[2022-11-21 17:56] LABS: CK-MB VALUE MASS 8.1 NG/ML (<3.6)
[2022-11-21 17:59] LABS: MB/CK RELATIVE INDEX 1.84 (< OR =4)
[2022-11-21 18:39] LABS: CK-MB VALUE MASS 7.1 NG/ML (<3.6); MB/CK RELATIVE INDEX 1.65 (< OR =4)
[2022-11-21 19:29] LABS: CK-MB VALUE MASS 7.5 NG/ML (<3.6)
[2022-11-21 19:30] LABS: MB/CK RELATIVE INDEX 1.8 (< OR =4)
[2022-11-21] MEDS ORDERED: OMEP-173 PO (20:20)
[2022-11-21] MEDS ORDERED: HOME MED LIST COMPLETE! XX SCH (20:20)
[2022-11-21] MEDS ORDERED: LEVALBUTEROL 1.25MG 0.5ML CONCENTRATE NEB NEB PRN (20:45)
[2022-11-21] MEDS ORDERED: ACETAMINOPHEN TAB 650MG DOSE (2X325MG) PO PRN (20:45)
[2022-11-21] MEDS ORDERED: GLUCAGON INJ 1MG VIAL SC PRN (20:50)
[2022-11-21] MEDS ORDERED: GLUCOSE 4GM CHEW TABLET PO PRN (20:50)
[2022-11-21] MEDS ORDERED: DEXTROSE 50% 50ML SYRINGE IV PRN (20:50)
[2022-11-21] MEDS: FLUTICASONE PROP 0.05% NASAL SPRAY 16 GM (FLONASE) SCH (21:00)
[2022-11-21] MEDS: APIXABAN 5 MG TAB (ELIQUIS) PO SCH (21:23)
[2022-11-21] MEDS: guaiFENesin ER 600 MG TAB PO SCH (21:23)
[2022-11-21] MEDS: INSULIN LISPRO (NovoLOG) PER UNIT SC SCH (21:24)
[2022-11-22] MEDS: methylPREDNISolone 40MG 1ML VIAL IV SCH ×2 (01:18→13:00)
[2022-11-22] MEDS ORDERED: IPRATROPIUM 0.5MG/ALBUTEROL 2.5MG INH SOL UD 3ML (DUONEB) NEB SCH (02:00)
[2022-11-22 06:30] LABS: HEMATOCRIT 37.9 % (42.0-52.0); HEMOGLOBIN 12.2 g/dl (13.5-17.5); MEAN CORPUSCULAR HGB CONC 32.2 g/dl (32.0-36.5); MEAN CORPUSCULAR VOLUME 96.2 fl (80.0-96.0); PLATELET COUNT, AUTOMATED 275 10^3/uL (150-450); RED BLOOD COUNT 3.94 10^6/uL (4.30-6.10); WHITE BLOOD COUNT 12.9 10^3/uL (4.0-10.0)
[2022-11-22 06:45] LABS: HEMOGLOBIN A1c 10.4 % (4.0-6.0)
[2022-11-22 06:51] LABS: MAGNESIUM LEVEL 1.8 MG/DL (1.8-2.4)
[2022-11-22 06:53] LABS: BLOOD UREA NITROGEN 30 MG/DL (9-23); CALCIUM LEVEL 8.6 MG/DL (8.3-10.6); CARBON DIOXIDE LEVEL 29 MMOL/L (20-31); CHLORIDE LEVEL 95 MMOL/L (98-107); CREATININE FOR GFR 0.89 MG/DL (0.70-1.30); GLOMERULAR FILTRATION RATE > 60.0 (>49); GLUCOSE, FASTING 372 MG/DL (74-106); POTASSIUM SERUM 4.5 MMOL/L (3.5-5.1); SODIUM LEVEL 133 MMOL/L (136-145)
[2022-11-22] MEDS: IPRATROPIUM 0.5MG/ALBUTEROL 2.5MG INH SOL UD 3ML (DUONEB) NEB SCH ×5 (08:00→23:11)
[2022-11-22] MEDS: ADVAIR HFA 115/21MCG INHALER INH SCH ×2 (08:16→19:31)
[2022-11-22] MEDS: guaiFENesin ER 600 MG TAB PO SCH ×2 (08:53→20:27)
[2022-11-22] MEDS: SERTRALINE HCL 25 MG TABLET PO SCH (08:53)
[2022-11-22] MEDS: APIXABAN 5 MG TAB (ELIQUIS) PO SCH ×2 (08:54→20:27)
[2022-11-22] MEDS: METOPROLOL SUCC *XL* 25MG TAB (TopROL *XL*) PO SCH (08:54)
[2022-11-22] MEDS: ATORVASTATIN 20 MG TAB PO SCH (08:56)
[2022-11-22] MEDS: OMEPRAZOLE 20MG CAP PO SCH (08:56)
[2022-11-22] MEDS: FLUTICASONE PROP 0.05% NASAL SPRAY 16 GM (FLONASE) SCH ×2 (08:57→20:27)
[2022-11-22] MEDS: INSULIN LISPRO (NovoLOG) PER UNIT SC SCH ×4 (08:57→20:28)
[2022-11-22] MEDS ORDERED: FUROSEMIDE 40MG/4ML VIAL IV SCH (09:00)
[2022-11-22] MEDS: LEVEMIR (INSULIN DETEMIR) 1 UNITS/0.01ML SC SCH (10:50)
[2022-11-22 13:41] VITALS: BP 142/82
[2022-11-22] MEDS ORDERED: TIOT18INH INH (13:43)
[2022-11-22] MEDS ORDERED: ADVA230A INH (13:43)
[2022-11-22 14:00] VITALS: O2SAT 95
[2022-11-22 15:00] VITALS: O2SAT 96
[2022-11-22 16:00] VITALS: BP 164/78; O2SAT 92
[2022-11-22] MEDS: FUROSEMIDE 40MG/4ML VIAL IV SCH (17:20)
[2022-11-22 20:00] VITALS: BP 146/82
[2022-11-23] VITALS (9 sets, daily range): BP systolic 148–160; BP diastolic 84–90; O2SAT 92–95
[2022-11-23] MEDS: methylPREDNISolone 40MG 1ML VIAL IV SCH ×2 (01:04→12:44)
[2022-11-23] MEDS: IPRATROPIUM 0.5MG/ALBUTEROL 2.5MG INH SOL UD 3ML (DUONEB) NEB SCH ×3 (02:46→11:15)
[2022-11-23] MEDS: SERTRALINE HCL 25 MG TABLET PO SCH (08:08)
[2022-11-23] MEDS: METOPROLOL SUCC *XL* 25MG TAB (TopROL *XL*) PO SCH (08:09)
[2022-11-23] MEDS: guaiFENesin ER 600 MG TAB PO SCH (08:09)
[2022-11-23] MEDS: APIXABAN 5 MG TAB (ELIQUIS) PO SCH (08:10)
[2022-11-23] MEDS: OMEPRAZOLE 20MG CAP PO SCH (08:11)
[2022-11-23] MEDS: ATORVASTATIN 20 MG TAB PO SCH (08:11)
[2022-11-23] MEDS: LEVEMIR (INSULIN DETEMIR) 1 UNITS/0.01ML SC SCH (08:11)
[2022-11-23] MEDS: INSULIN LISPRO (NovoLOG) PER UNIT SC SCH ×2 (08:12→12:03)
[2022-11-23] MEDS: FLUTICASONE PROP 0.05% NASAL SPRAY 16 GM (FLONASE) SCH (08:12)
[2022-11-23] MEDS: ADVAIR HFA 115/21MCG INHALER INH SCH (08:22)
[2022-11-23] MEDS: FUROSEMIDE 40MG/4ML VIAL IV SCH (09:00)
[2022-11-23] MEDS ORDERED: GLUC1TES2 XX (09:38)
[2022-11-23] MEDS ORDERED: BLOOKIT21 XX (09:38)
[2022-11-23] MEDS ORDERED: AZIT500T5 PO (09:38)
[2022-11-23] MEDS ORDERED: BASA100I SC (09:38)
[2022-11-23] MEDS ORDERED: LANC30MI XX (09:38)
[2022-11-23] MEDS ORDERED: ATOR80TA59 PO (09:38)
[2022-11-23] MEDS ORDERED: ZOLO25TA PO (09:38)
[2022-11-23] MEDS ORDERED: PEN1MIS22 SC (09:38)
[2022-11-23] MEDS ORDERED: MUCI600T31 PO (09:38)
[2022-11-23] MEDS ORDERED: PRED20TA PO (09:38)
[2022-11-23] MEDS ORDERED: OMEP-173 PO (09:38)
[2022-11-23] MEDS ORDERED: LASI40TA9 PO (09:38)
[2022-11-23] MEDS ORDERED: ELIQ5TAB PO (09:38)
[2022-11-23] MEDS ORDERED: ALBU6.7H6 INH (09:38)
[2022-11-23] MEDS ORDERED: ALCOPAD25 TOP (09:38)
[2022-11-23] MEDS ORDERED: METO1TAB32 PO (09:38)
[2022-11-23] MEDS ORDERED: LISI20TA33 PO (09:38)
[2022-11-23] MEDS ORDERED: METF-877 PO (09:38)
[2022-11-23] MEDS ORDERED: INCR1INH INH (13:14)
[2022-11-23] MEDS ORDERED: AIRD1INH3 INH (13:18)
== END 2022-11-23 15:05 | disposition home or self-care (01) | DRG 194 ==
LOC: M ED 10:16 → M ED INP 20:42 → ENRESERV 11-22 11:24 → M PCU 11-22 13:15
PROVIDERS: ADMIT Internal Medicine; ATTEND Internal Medicine Nephrology
DX: I11.0 Hypertensive heart disease with heart failure (principal); E11.40 Type 2 diabetes mellitus with diabetic neuropathy, unspecified; I27.20 Pulmonary hypertension, unspecified; E11.65 Type 2 diabetes mellitus with hyperglycemia; I48.92 Unspecified atrial flutter; J44.1 Chronic obstructive pulmonary disease with (acute) exacerbation; E66.9 Obesity, unspecified; E78.5 Hyperlipidemia, unspecified; F32.A Depression, unspecified; F41.9 Anxiety disorder, unspecified; I25.10 Atherosclerotic heart disease of native coronary artery without angina pectoris; I48.0 Paroxysmal atrial fibrillation; Z68.38 Body mass index [BMI] 38.0-38.9, adult; Z79.899 Other long term (current) drug therapy; Z87.891 Personal history of nicotine dependence; I25.2 Old myocardial infarction; I50.33 Acute on chronic diastolic (congestive) heart failure

== ENCOUNTER 2022-12-27 20:11 | Emergency (ER) | payer OTHER ==
[~2022-12-27] VITALS: Ht 182.9 cm; Wt 123.6 kg
[~2022-12-27 20:11] MED LIST changes: +ADVA230A INH; +AIRD1INH3 INH; +AZIT500T5 PO; +INCR1INH INH; +MUCI600T31 PO; +OMEP-173 PO; +PEN1MIS22 SC; +TIOT18INH INH; +[UNRECOGNIZED DRUG - CODE] SC; -[UNRECOGNIZED DRUG - CODE] SC
[2022-12-27 20:21] VITALS: BP 157/70
[2022-12-27 20:52] LABS: BASO # 0.1 10^3/uL (0.0-0.2); BASO % 0.6 % (0.0-1.0); EOS # 0.2 10^3/uL (0.0-0.5); EOS % 1.8 % (0.0-3.0); HEMATOCRIT 38.4 % (42.0-52.0); HEMOGLOBIN 12.4 g/dl (13.5-17.5); LYMPH # 1.5 10^3/uL (1.5-5.0); LYMPH % 14.5 % (24.0-44.0); MEAN CORPUSCULAR HEMOGLOBIN 31.2 pg (27.0-33.0); MEAN CORPUSCULAR HGB CONC 32.3 g/dl (32.0-36.5); MEAN CORPUSCULAR VOLUME 96.5 fl (80.0-96.0); MONO # 0.7 10^3/uL (0.0-0.8); MONO % 6.8 % (2.0-8.0); NEUTROPHILS # 7.9 10^3/uL (1.5-8.5); PLATELET COUNT, AUTOMATED 307 10^3/uL (150-450); RED BLOOD COUNT 3.98 10^6/uL (4.30-6.10); WHITE BLOOD COUNT 10.4 10^3/uL (4.0-10.0)
[2022-12-27 21:07] LABS: INR 1.1; PROTHROMBIN TIME 14.4 SECONDS (12.5-14.5)
[2022-12-27 21:17] LABS: CK-MB VALUE MASS 10.4 NG/ML (<3.6); LIPASE 29 U/L (12-53)
[2022-12-27 21:19] LABS: ALBUMIN 2.9 G/DL (3.2-5.2); ALKALINE PHOSPHATASE 97 U/L (46-116); ALT/SGPT 32 U/L (7.0-40); AST/SGOT 20 U/L (<34); BILIRUBIN,DIRECT 0.2 MG/DL (<0.4); BILIRUBIN,TOTAL 0.4 MG/DL (0.3-1.2); BLOOD UREA NITROGEN 22 MG/DL (9-23); CALCIUM LEVEL 7.7 MG/DL (8.3-10.6); CARBON DIOXIDE LEVEL 26 MMOL/L (20-31); CHLORIDE LEVEL 104 MMOL/L (98-107); CREATININE FOR GFR 0.99 MG/DL (0.70-1.30); GLOMERULAR FILTRATION RATE > 60.0 (>49); GLUCOSE, FASTING 263 MG/DL (74-106); POTASSIUM SERUM 4.3 MMOL/L (3.5-5.1); SODIUM LEVEL 132 MMOL/L (136-145); TOTAL PROTEIN 6.3 G/DL (5.7-8.2)
[2022-12-27 21:21] LABS: THYROID STIMULATING HORMONE 3.404 uIU/ML (0.55-4.78)
[2022-12-27 21:27] LABS: RSV AMPLIFICATION NEGATIVE (NEGATIVE)
[2022-12-27 21:31] LABS: CPK CREATINE PHOSPHOKINASE 841 U/L (46-171); MB/CK RELATIVE INDEX 1.23 (< OR =4)
== END 2022-12-27 23:58 | disposition left against medical advice (07) ==
LOC: EDBD 20:11 → M ED 20:11
DX: Z53.21 Procedure and treatment not carried out due to patient leaving prior to being seen by health care provider (principal)

== ENCOUNTER 2023-01-09 11:09 | Emergency (ER) | payer OTHER ==
[~2023-01-09] VITALS: Ht 182.9 cm; Wt 125.6 kg
[2023-01-09] MEDS: COMBIVENT RESPIMAT 100-20MCG INHALER 4GM INH SCH ×2 (12:39→12:40)
[2023-01-09 12:53] LABS: ABG BASE EXCESS 3.3 (-2.0-2.0); ABG HCO3 27.8 MEQ/L (22.0-26.0); ABG O2 SATURATION 97.6 % (95.0-99.0); ABG PARTIAL PRESSURE CO2 41.7 mmHg (35.0-45.0); ABG PARTIAL PRESSURE O2 90.6 mmHg (75.0-100.0); ABG STANDARD HCO3 27.4 MEQ/L (22.0-26.0); ABG TOTAL CO2 29.1 MEQ/L (23.0-31.0); ABG pH (ARTERIAL) 7.442 UNITS (7.350-7.450); BASO % 0.2 % (0.0-1.0); EOS # 0.2 10^3/uL (0.0-0.5); HEMATOCRIT 44.9 % (42.0-52.0); HEMOGLOBIN 14.9 g/dl (13.5-17.5); LYMPH # 2.4 10^3/uL (1.5-5.0); LYMPH % 15.8 % (24.0-44.0); MEAN CORPUSCULAR HEMOGLOBIN 31.2 pg (27.0-33.0); MEAN CORPUSCULAR HGB CONC 33.2 g/dl (32.0-36.5); MEAN CORPUSCULAR VOLUME 94.1 fl (80.0-96.0); MONO % 6.3 % (2.0-8.0); NEUTROPHILS # 11.8 10^3/uL (1.5-8.5); NEUTROPHILS % 75.8 % (36.0-66.0); PLATELET COUNT, AUTOMATED 283 10^3/uL (150-450); RED BLOOD COUNT 4.77 10^6/uL (4.30-6.10); WHITE BLOOD COUNT 15.5 10^3/uL (4.0-10.0)
[2023-01-09 13:22] LABS: CPK CREATINE PHOSPHOKINASE 283 U/L (46-171)
[2023-01-09 13:26] LABS: ALBUMIN 2.9 G/DL (3.2-5.2); ALKALINE PHOSPHATASE 94 U/L (46-116); ALT/SGPT 39 U/L (7.0-40); AST/SGOT 22 U/L (<34); BILIRUBIN,DIRECT 0.2 MG/DL (<0.4); BILIRUBIN,TOTAL 0.5 MG/DL (0.3-1.2); BLOOD UREA NITROGEN 28 MG/DL (9-23); CALCIUM LEVEL 8.5 MG/DL (8.3-10.6); CARBON DIOXIDE LEVEL 27 MMOL/L (20-31); CHLORIDE LEVEL 96 MMOL/L (98-107); CK-MB VALUE MASS 9.9 NG/ML (<3.6); GLOMERULAR FILTRATION RATE > 60.0 (>49); GLUCOSE, FASTING 277 MG/DL (74-106); MB/CK RELATIVE INDEX 3.49 (< OR =4); POTASSIUM SERUM 4.7 MMOL/L (3.5-5.1); SODIUM LEVEL 131 MMOL/L (136-145); TOTAL PROTEIN 6.3 G/DL (5.7-8.2)
[2023-01-09 14:12] LABS: CK-MB VALUE MASS 6.6 NG/ML (<3.6)
[2023-01-09 14:18] LABS: MB/CK RELATIVE INDEX 2.65 (< OR =4)
[2023-01-09] MEDS ORDERED: predniSONE 20 MG TAB PO ONE (14:55)
[2023-01-09] MEDS ORDERED: AUGMENTIN 875 MG TAB PO ONE (14:55)
[2023-01-09] MEDS ORDERED: BENZ200C70 PO (15:10)
[2023-01-09] MEDS ORDERED: AMOX875T2 PO (15:10)
[2023-01-09] MEDS ORDERED: PRED10TA2 PO (15:10)
[2023-01-09 15:26] VITALS: BP 136/70
== END 2023-01-09 15:29 | disposition home or self-care (01) ==
LOC: M ED 11:09
DX: J44.1 Chronic obstructive pulmonary disease with (acute) exacerbation (principal); B34.8 Other viral infections of unspecified site; D72.829 Elevated white blood cell count, unspecified; K21.9 Gastro-esophageal reflux disease without esophagitis; I10 Essential (primary) hypertension; E11.9 Type 2 diabetes mellitus without complications; Z79.52 Long term (current) use of systemic steroids; Z79.811 Long term (current) use of aromatase inhibitors; Z79.4 Long term (current) use of insulin; Z79.899 Other long term (current) drug therapy
CPT/HCPCS: 36415; 36600; 71045; 80048; 80076; 82550; 82553; 82803; 83880; 85025; 87040; 87486; 87581; 87633; 87798; 93005; 93041; 94640; 94760; 99285; J7512

== ENCOUNTER 2023-07-07 21:31 | Emergency (ER) | payer OTHER ==
[~2023-07-07] VITALS: Ht 185.4 cm; Wt 122.7 kg
[~2023-07-07 21:31] MED LIST changes: +AMOX875T2 PO; +BENZ200C70 PO; +FLUT50SP17; -FLUTISP; +PRED10TA2 PO
[2023-07-07 21:42] VITALS: TEMP 99.2
[2023-07-07 22:15] LABS: BASO # 0.1 10^3/uL (0.0-0.2); BASO % 0.7 % (0.0-1.0); EOS # 0.2 10^3/uL (0.0-0.5); EOS % 1.9 % (0.0-3.0); HEMATOCRIT 43.3 % (42.0-52.0); HEMOGLOBIN 14.4 g/dl (13.5-17.5); LYMPH # 2.9 10^3/uL (1.5-5.0); LYMPH % 26.5 % (24.0-44.0); MEAN CORPUSCULAR HEMOGLOBIN 32.1 pg (27.0-33.0); MEAN CORPUSCULAR HGB CONC 33.3 g/dl (32.0-36.5); MEAN CORPUSCULAR VOLUME 96.7 fl (80.0-96.0); MONO # 0.9 10^3/uL (0.0-0.8); MONO % 7.8 % (2.0-8.0); NEUTROPHILS # 6.8 10^3/uL (1.5-8.5); NEUTROPHILS % 62.9 % (36.0-66.0); PLATELET COUNT, AUTOMATED 283 10^3/uL (150-450); RED BLOOD COUNT 4.48 10^6/uL (4.30-6.10); WHITE BLOOD COUNT 10.9 10^3/uL (4.0-10.0)
[2023-07-07 22:54] LABS: BLOOD UREA NITROGEN 16 MG/DL (9-23); CALCIUM LEVEL 8.3 MG/DL (8.3-10.6); CARBON DIOXIDE LEVEL 25 MMOL/L (20-31); CHLORIDE LEVEL 98 MMOL/L (98-107); CK-MB VALUE MASS 5.8 NG/ML (<3.6); CPK CREATINE PHOSPHOKINASE 331 U/L (46-171); GLOMERULAR FILTRATION RATE > 60.0 (>49); GLUCOSE, FASTING 408 MG/DL (74-106); MB/CK RELATIVE INDEX 1.75 (< OR =4); POTASSIUM SERUM 5.6 MMOL/L (3.5-5.1); SODIUM LEVEL 130 MMOL/L (136-145)
[2023-07-07] MEDS ORDERED: HumuLIN R (REGULAR) INSULIN (NovoLIN R) **100U/ML** PER UNIT IV ONE (23:00)
[2023-07-07 23:57] LABS: CK-MB VALUE MASS 5.1 NG/ML (<3.6)
[2023-07-08 00:01] LABS: MB/CK RELATIVE INDEX 1.67 (< OR =4)
[2023-07-08] MEDS ORDERED: LANC30MI XX (01:11)
[2023-07-08] MEDS ORDERED: GLUC1TES2 XX (01:11)
[2023-07-08] MEDS ORDERED: BASA100I SC (01:11)
[2023-07-08] MEDS ORDERED: PEN1MIS22 SC (01:11)
[2023-07-08 01:15] VITALS: O2SAT 97
[2023-07-08 01:16] VITALS: BP 139/65
[2023-07-08] MEDS ORDERED: AZIT500T5 PO (01:26)
[2023-07-08] MEDS ORDERED: PRED20TA PO (01:26)
== END 2023-07-08 01:20 | disposition home or self-care (01) ==
LOC: M ED 21:31 → EDBD 21:31 → M ED 07-08 01:20
DX: R07.9 Chest pain, unspecified (principal); J44.1 Chronic obstructive pulmonary disease with (acute) exacerbation; E11.65 Type 2 diabetes mellitus with hyperglycemia; I45.81 Long QT syndrome; I10 Essential (primary) hypertension; I25.2 Old myocardial infarction; E78.5 Hyperlipidemia, unspecified; F32.A Depression, unspecified; Z79.84 Long term (current) use of oral hypoglycemic drugs; Z86.79 Personal history of other diseases of the circulatory system; Z79.01 Long term (current) use of anticoagulants; Z87.891 Personal history of nicotine dependence; Z79.52 Long term (current) use of systemic steroids; Z79.811 Long term (current) use of aromatase inhibitors; Z79.899 Other long term (current) drug therapy
CPT/HCPCS: 71045; 80048; 82550; 82553; 83880; 85025; 93005; 93041; 94760; 96374; 99285; J1815

== ENCOUNTER → 2023-07-10 | Outpatient (CLI) | payer OTHER ==
[2023-07-10 14:31] LABS: CHOLESTEROL RISK RATIO 3.3 (<5); HDL CHOLESTEROL 48.1 MG/DL (>40); LDL CHOLESTEROL 80.3 MG/DL (<100); MAGNESIUM LEVEL 1.5 MG/DL (1.8-2.4); NON-HDL-C 110.9 MG/DL
[2023-07-10 14:44] LABS: HEMOGLOBIN A1c 11.8 % (4.0-6.0)
== END ==
LOC: M PLALAB 08:57
PROVIDERS: ATTEND Nurse Practitioner Family
DX: I50.9 Heart failure, unspecified (principal); E11.8 Type 2 diabetes mellitus with unspecified complications; E78.5 Hyperlipidemia, unspecified; I11.0 Hypertensive heart disease with heart failure

== ENCOUNTER → 2023-09-27 | Outpatient (CLI) | payer OTHER ==
[~2023-09-27] MED LIST changes: +PEN-308 SC; -PEN1MIS21 SC
[2023-09-27 13:52] LABS: APPEARANCE, URINE HAZY (CLEAR); BACTERIA, URINE AUTO 1+ (NEGATIVE); BILIRUBIN, URINE AUTO NEGATIVE (NEGATIVE); BLOOD, URINE BLOOD NEGATIVE (NEGATIVE); COLOR, URINE YELLOW (YELLOW); GLUCOSE, URINE (UA) AUTO 3+ mg/dL (NEGATIVE); KETONE, URINE AUTO NEGATIVE (NEGATIVE); LEUKOCYTE ESTERASE, URINE AUTO 1+ (NEGATIVE); NITRITE, URINE AUTO NEGATIVE (NEGATIVE); PROTEIN, URINE AUTO 2+ mg/dL (NEGATIVE); RBC, URINE AUTO 1 /HPF (0-3); SPECIFIC GRAVITY URINE AUTO 1.024 (1.002-1.035); SQUAMOUS EPITHELIAL CELL UR AU 0 /HPF (0-6); UROBILINOGEN, URINE AUTO 0.2 mg/dL (0.0-2.0); WBC, URINE AUTO 70 /HPF (0-3)
[2023-09-27 14:36] LABS: BASO # 0.1 10^3/uL (0.0-0.2); BASO % 0.7 % (0.0-1.0); EOS # 0.2 10^3/uL (0.0-0.5); EOS % 1.7 % (0.0-3.0); HEMATOCRIT 45.8 % (42.0-52.0); HEMOGLOBIN 15.3 g/dl (13.5-17.5); LYMPH # 2.3 10^3/uL (1.5-5.0); LYMPH % 19.7 % (24.0-44.0); MEAN CORPUSCULAR HEMOGLOBIN 32.7 pg (27.0-33.0); MEAN CORPUSCULAR HGB CONC 33.4 g/dl (32.0-36.5); MEAN CORPUSCULAR VOLUME 97.9 fl (80.0-96.0); MONO # 0.9 10^3/uL (0.0-0.8); MONO % 7.7 % (2.0-8.0); NEUTROPHILS # 8.3 10^3/uL (1.5-8.5); NEUTROPHILS % 69.8 % (36.0-66.0); PLATELET COUNT, AUTOMATED 315 10^3/uL (150-450); RED BLOOD COUNT 4.68 10^6/uL (4.30-6.10); WHITE BLOOD COUNT 11.9 10^3/uL (4.0-10.0)
[2023-09-27 14:59] LABS: ALBUMIN 3.7 G/DL (3.2-5.2); ALKALINE PHOSPHATASE 91 U/L (46-116); ALT/SGPT 36 U/L (7.0-40); AST/SGOT 24 U/L (<34); BILIRUBIN,TOTAL 0.7 MG/DL (0.3-1.2); BLOOD UREA NITROGEN 23 MG/DL (9-23); CALCIUM LEVEL 9.3 MG/DL (8.3-10.6); CARBON DIOXIDE LEVEL 27 MMOL/L (20-31); CHLORIDE LEVEL 95 MMOL/L (98-107); CREATININE FOR GFR 1.02 MG/DL (0.70-1.30); GLOMERULAR FILTRATION RATE > 60.0 (>49); GLUCOSE, FASTING 382 MG/DL (74-106); POTASSIUM SERUM 5.1 MMOL/L (3.5-5.1); SODIUM LEVEL 131 MMOL/L (136-145); TOTAL PROTEIN 7.3 G/DL (5.7-8.2)
[2023-09-28 23:08] LABS: PSA TOTAL 0.2 ng/mL (0.0-4.0)
== END ==
LOC: M PLALAB 09:20
PROVIDERS: ATTEND Nurse Practitioner Family
DX: R39.9 Unspecified symptoms and signs involving the genitourinary system (principal)

== ENCOUNTER → 2023-10-04 | Outpatient (CLI) | payer OTHER ==
[2023-10-04 13:54] LABS: BASO # 0.1 10^3/uL (0.0-0.2); BASO % 0.6 % (0.0-1.0); EOS # 0.2 10^3/uL (0.0-0.5); EOS % 1.9 % (0.0-3.0); HEMATOCRIT 42.9 % (42.0-52.0); HEMOGLOBIN 14.5 g/dl (13.5-17.5); LYMPH # 2.4 10^3/uL (1.5-5.0); LYMPH % 22.4 % (24.0-44.0); MEAN CORPUSCULAR HEMOGLOBIN 32.4 pg (27.0-33.0); MEAN CORPUSCULAR HGB CONC 33.8 g/dl (32.0-36.5); MONO # 0.8 10^3/uL (0.0-0.8); MONO % 7.7 % (2.0-8.0); NEUTROPHILS # 7.3 10^3/uL (1.5-8.5); PLATELET COUNT, AUTOMATED 318 10^3/uL (150-450); RED BLOOD COUNT 4.47 10^6/uL (4.30-6.10); WHITE BLOOD COUNT 10.8 10^3/uL (4.0-10.0)
[2023-10-04 14:24] LABS: CREATININE, URINE 70.3 MG/DL
[2023-10-04 14:30] LABS: ALBUMIN 3.3 G/DL (3.2-5.2); ALKALINE PHOSPHATASE 84 U/L (46-116); ALT/SGPT 37 U/L (7.0-40); AST/SGOT 25 U/L (<34); BILIRUBIN,TOTAL 0.7 MG/DL (0.3-1.2); BLOOD UREA NITROGEN 25 MG/DL (9-23); CARBON DIOXIDE LEVEL 25 MMOL/L (20-31); CHLORIDE LEVEL 97 MMOL/L (98-107); CHOLESTEROL LEVEL 126 MG/DL (<200); CHOLESTEROL RISK RATIO 3.26 (<5); CREATININE FOR GFR 0.91 MG/DL (0.70-1.30); GLOMERULAR FILTRATION RATE > 60.0 (>49); GLUCOSE, FASTING 317 MG/DL (74-106); HDL CHOLESTEROL 38.6 MG/DL (>40); NON-HDL-C 87.4 MG/DL; POTASSIUM SERUM 4.6 MMOL/L (3.5-5.1); SODIUM LEVEL 127 MMOL/L (136-145); TOTAL PROTEIN 6.6 G/DL (5.7-8.2); TRIGLYCERIDES LEVEL 77 MG/DL (<150)
[2023-10-04 14:39] LABS: MAU/CREAT RATIO 1645.8 MCG/MG (0.0-30.0)
== END ==
LOC: M RAD 12:53
PROVIDERS: ATTEND Nurse Practitioner Family
DX: I50.9 Heart failure, unspecified (principal); R10.9 Unspecified abdominal pain; E11.8 Type 2 diabetes mellitus with unspecified complications; E78.5 Hyperlipidemia, unspecified

== ENCOUNTER 2023-10-28 18:54 | Inpatient (IN) | payer OTHER ==
[~2023-10-28] VITALS: Ht 185.4 cm; Wt 119.5 kg
[~2023-10-28 18:54] MED LIST changes: -FLUT50SP17; +FLUTISP
[2023-10-28 20:02] LABS: BASO # 0.1 10^3/uL (0.0-0.2); BASO % 0.6 % (0.0-1.0); EOS # 0.1 10^3/uL (0.0-0.5); EOS % 0.3 % (0.0-3.0); HEMATOCRIT 44.5 % (42.0-52.0); LYMPH # 0.6 10^3/uL (1.5-5.0); LYMPH % 3.8 % (24.0-44.0); MEAN CORPUSCULAR HEMOGLOBIN 32.3 pg (27.0-33.0); MEAN CORPUSCULAR HGB CONC 33.7 g/dl (32.0-36.5); MEAN CORPUSCULAR VOLUME 95.9 fl (80.0-96.0); MONO # 0.9 10^3/uL (0.0-0.8); MONO % 6.4 % (2.0-8.0); NEUTROPHILS # 12.7 10^3/uL (1.5-8.5); NEUTROPHILS % 88.5 % (36.0-66.0); PLATELET COUNT, AUTOMATED 302 10^3/uL (150-450); RED BLOOD COUNT 4.64 10^6/uL (4.30-6.10); WHITE BLOOD COUNT 14.3 10^3/uL (4.0-10.0)
[2023-10-28] MEDS ORDERED: ACETAMINOPHEN TAB 650MG DOSE (2X325MG) PO ONE (20:20)
[2023-10-28] MEDS ORDERED: NS 1,000 ML IV ONE (20:20)
[2023-10-28 20:35] LABS: CK-MB VALUE MASS 4.7 NG/ML (<3.6)
[2023-10-28 20:37] LABS: BLOOD UREA NITROGEN 20 MG/DL (9-23); CALCIUM LEVEL 8.4 MG/DL (8.3-10.6); CARBON DIOXIDE LEVEL 18 MMOL/L (20-31); CHLORIDE LEVEL 97 MMOL/L (98-107); CREATININE FOR GFR 0.79 MG/DL (0.70-1.30); GLOMERULAR FILTRATION RATE > 60.0 (>49); GLUCOSE, FASTING 368 MG/DL (74-106); POTASSIUM SERUM 4.8 MMOL/L (3.5-5.1); SODIUM LEVEL 128 MMOL/L (136-145)
[2023-10-28 20:51] LABS: CPK CREATINE PHOSPHOKINASE 513 U/L (46-171); MB/CK RELATIVE INDEX 0.91 (< OR =4)
[2023-10-28 21:51] LABS: CK-MB VALUE MASS 3.3 NG/ML (<3.6)
[2023-10-28 22:04] LABS: PROCALCITONIN 0.08 ng/ml
[2023-10-28 22:06] LABS: MB/CK RELATIVE INDEX 0.7 (< OR =4)
[2023-10-28] MEDS ORDERED: ISOVUE-370 76% 100ML VIAL As Ordered ONE (22:14)
[2023-10-28] MEDS ORDERED: cefTRIAXone SOD 2 GM in D5W MINI-BAG PLUS 50 ML IV ONE (23:45)
[2023-10-28] MEDS ORDERED: METOPROLOL 5 MG/5 ML VIAL IV PRN (23:45)
[2023-10-29] MEDS ORDERED: METOPROLOL TART 25 MG TABLET PO ONE
[2023-10-29] MEDS ORDERED: FLUT1INH3 PO (00:32)
[2023-10-29] MEDS ORDERED: MONT10TA97 PO (00:32)
[2023-10-29] MEDS ORDERED: ALBU8.5H INH (00:32)
[2023-10-29] MEDS ORDERED: METF10004 PO (00:32)
[2023-10-29] MEDS ORDERED: FURO40TA2 PO (00:32)
[2023-10-29] MEDS ORDERED: SERT25TA21 PO (00:35)
[2023-10-29] MEDS ORDERED: ATOR80TA59 PO (00:35)
[2023-10-29] MEDS ORDERED: BASA100I SC (00:35)
[2023-10-29] MEDS ORDERED: ELIQ5TAB PO (00:35)
[2023-10-29] MEDS ORDERED: FLON1SPR (00:35)
[2023-10-29] MEDS ORDERED: INCR1INH INH (00:35)
[2023-10-29] MEDS ORDERED: LISI20TA33 PO (00:35)
[2023-10-29] MEDS ORDERED: METO1TAB32 PO (00:36)
[2023-10-29] MEDS ORDERED: HOME MED LIST COMPLETE! XX SCH (00:40)
[2023-10-29] MEDS ORDERED: LORazepam 2 MG TAB PO PRN (02:10)
[2023-10-29] MEDS ORDERED: GLUCOSE 4GM CHEW TABLET PO PRN (02:20)
[2023-10-29] MEDS ORDERED: DEXTROSE 50% 50ML SYRINGE IV PRN (02:20)
[2023-10-29] MEDS ORDERED: GLUCAGON INJ 1MG VIAL SC PRN (02:20)
[2023-10-29] MEDS ORDERED: ALBUTEROL 90 MCG/ACT 8GM HFA INHALER INH PRN (02:35)
[2023-10-29 03:21] LABS: BASO # 0.1 10^3/uL (0.0-0.2); BASO % 0.6 % (0.0-1.0); EOS # 0.1 10^3/uL (0.0-0.5); EOS % 0.6 % (0.0-3.0); HEMATOCRIT 42.5 % (42.0-52.0); HEMOGLOBIN 13.9 g/dl (13.5-17.5); LYMPH # 0.4 10^3/uL (1.5-5.0); LYMPH % 3.4 % (24.0-44.0); MEAN CORPUSCULAR HEMOGLOBIN 31.6 pg (27.0-33.0); MEAN CORPUSCULAR HGB CONC 32.7 g/dl (32.0-36.5); MEAN CORPUSCULAR VOLUME 96.6 fl (80.0-96.0); MONO % 9.1 % (2.0-8.0); NEUTROPHILS # 9.3 10^3/uL (1.5-8.5); PLATELET COUNT, AUTOMATED 264 10^3/uL (150-450); WHITE BLOOD COUNT 10.8 10^3/uL (4.0-10.0)
[2023-10-29 03:40] LABS: ALBUMIN 2.8 G/DL (3.2-5.2); ALKALINE PHOSPHATASE 84 U/L (46-116); ALT/SGPT 27 U/L (7.0-40); AST/SGOT 17 U/L (<34); BILIRUBIN,TOTAL 0.4 MG/DL (0.3-1.2); BLOOD UREA NITROGEN 16 MG/DL (9-23); CALCIUM LEVEL 7.7 MG/DL (8.3-10.6); CARBON DIOXIDE LEVEL 24 MMOL/L (20-31); CHLORIDE LEVEL 99 MMOL/L (98-107); CREATININE FOR GFR 0.75 MG/DL (0.70-1.30); GLOMERULAR FILTRATION RATE > 60.0 (>49); GLUCOSE, FASTING 308 MG/DL (74-106); MAGNESIUM LEVEL 1.8 MG/DL (1.8-2.4); POTASSIUM SERUM 4.7 MMOL/L (3.5-5.1); SODIUM LEVEL 131 MMOL/L (136-145)
[2023-10-29] MEDS ORDERED: INSULIN LISPRO (NovoLOG) PER UNIT SC ONE (04:00)
[2023-10-29 04:56] VITALS: BP 134/60; TEMP 98.4; O2SAT 97
[2023-10-29] MEDS: THIAMINE 100 MG TAB PO SCH ×2 (05:00→21:16)
[2023-10-29] MEDS: DOXYCYCLINE HYCLATE 100MG TABLET PO SCH ×2 (05:00→17:19)
[2023-10-29] MEDS ORDERED: INSULIN LISPRO (NovoLOG) PER UNIT SC SCH (07:30)
[2023-10-29 07:42] VITALS: BP 131/64; TEMP 97.9; O2SAT 93
[2023-10-29] MEDS: SODIUM CHLORIDE HYPERTONIC 3% 4ML NEB SOL INH SCH ×5 (08:00→23:41)
[2023-10-29] MEDS: ALBUTEROL SULFATE 2.5MG/0.5ML INH NEB SOLN NEB SCH ×6 (08:00→23:41)
[2023-10-29] MEDS ORDERED: FUROSEMIDE 40 MG TAB PO SCH (09:00)
[2023-10-29] MEDS ORDERED: ENOXAPARIN 40MG/0.4ML SYRINGE (J1650 PER 10MG) SC SCH (09:00)
[2023-10-29] MEDS: INSULIN LISPRO (NovoLOG) PER UNIT SC SCH ×7 (09:31→21:16)
[2023-10-29] MEDS: LEVEMIR (INSULIN DETEMIR) 1 UNITS/0.01ML SC SCH (09:31)
[2023-10-29] MEDS: SERTRALINE HCL 25 MG TABLET PO SCH (09:33)
[2023-10-29] MEDS: MULTIVITAMINS/MINERALS THERAP 1 TAB PO SCH (09:33)
[2023-10-29] MEDS: ATORVASTATIN 20 MG TAB PO SCH (09:33)
[2023-10-29] MEDS: FOLIC ACID 1MG TAB PO SCH (09:33)
[2023-10-29] MEDS: METOPROLOL TART 25 MG TABLET PO SCH ×2 (09:36→21:16)
[2023-10-29] MEDS: APIXABAN 5 MG TAB (ELIQUIS) PO SCH ×2 (09:36→21:16)
[2023-10-29 11:56] VITALS: BP 137/61; TEMP 97.8; O2SAT 95
[2023-10-29] MEDS: TIOTROPIUM INHALER/CAPSULE (SPIRIVA) INH SCH (12:47)
[2023-10-29] MEDS: SYMBICORT 160/4.5MCG INHALER 6GM INH SCH ×2 (12:47→19:29)
[2023-10-29 15:36] VITALS: BP 131/74; TEMP 97.3; O2SAT 94
[2023-10-29 19:45] VITALS: BP 110/57; TEMP 97.3; O2SAT 98
[2023-10-30] VITALS (8 sets, daily range): BP systolic 128–170; BP diastolic 67–90; TEMP 97.1–98.6; O2SAT 93–100
[2023-10-30] MEDS: cefTRIAXone SOD 1 GM in D5W MINI-BAG PLUS 50 ML IV SCH (00:21)
[2023-10-30] MEDS: SODIUM CHLORIDE HYPERTONIC 3% 4ML NEB SOL INH SCH ×5 (03:40→21:13)
[2023-10-30] MEDS: ALBUTEROL SULFATE 2.5MG/0.5ML INH NEB SOLN NEB SCH ×5 (03:40→21:13)
[2023-10-30] MEDS: DOXYCYCLINE HYCLATE 100MG TABLET PO SCH ×2 (05:34→17:58)
[2023-10-30 07:34] LABS: BASO % 0.3 % (0.0-1.0); EOS # 0.1 10^3/uL (0.0-0.5); EOS % 0.6 % (0.0-3.0); HEMATOCRIT 40.2 % (42.0-52.0); HEMOGLOBIN 13.2 g/dl (13.5-17.5); LYMPH % 12.1 % (24.0-44.0); MEAN CORPUSCULAR HEMOGLOBIN 31.8 pg (27.0-33.0); MEAN CORPUSCULAR HGB CONC 32.8 g/dl (32.0-36.5); MEAN CORPUSCULAR VOLUME 96.9 fl (80.0-96.0); MONO % 11.3 % (2.0-8.0); NEUTROPHILS # 6.5 10^3/uL (1.5-8.5); NEUTROPHILS % 75.2 % (36.0-66.0); PLATELET COUNT, AUTOMATED 277 10^3/uL (150-450); RED BLOOD COUNT 4.15 10^6/uL (4.30-6.10); WHITE BLOOD COUNT 8.6 10^3/uL (4.0-10.0)
[2023-10-30] MEDS: SYMBICORT 160/4.5MCG INHALER 6GM INH SCH ×2 (08:01→21:14)
[2023-10-30 08:24] LABS: BLOOD UREA NITROGEN 17 MG/DL (9-23); CARBON DIOXIDE LEVEL 21 MMOL/L (20-31); CHLORIDE LEVEL 98 MMOL/L (98-107); CREATININE FOR GFR 0.73 MG/DL (0.70-1.30); GLOMERULAR FILTRATION RATE > 60.0 (>49); GLUCOSE, FASTING 226 MG/DL (74-106); POTASSIUM SERUM 4.4 MMOL/L (3.5-5.1); SODIUM LEVEL 130 MMOL/L (136-145)
[2023-10-30] MEDS: INSULIN LISPRO (NovoLOG) PER UNIT SC SCH ×7 (08:47→21:02)
[2023-10-30] MEDS: LEVEMIR (INSULIN DETEMIR) 1 UNITS/0.01ML SC SCH (08:47)
[2023-10-30] MEDS: MULTIVITAMINS/MINERALS THERAP 1 TAB PO SCH (08:48)
[2023-10-30] MEDS: THIAMINE 100 MG TAB PO SCH ×2 (08:48→21:03)
[2023-10-30] MEDS: METOPROLOL TART 25 MG TABLET PO SCH ×2 (08:48→21:03)
[2023-10-30] MEDS: FOLIC ACID 1MG TAB PO SCH (08:48)
[2023-10-30] MEDS: APIXABAN 5 MG TAB (ELIQUIS) PO SCH ×2 (08:48→21:03)
[2023-10-30] MEDS: SERTRALINE HCL 25 MG TABLET PO SCH (08:48)
[2023-10-30] MEDS: ATORVASTATIN 20 MG TAB PO SCH (08:48)
[2023-10-30] MEDS ORDERED: NS 1,000 ML IV ONE (09:00)
[2023-10-30] MEDS: TIOTROPIUM INHALER/CAPSULE (SPIRIVA) INH SCH (11:19)
[2023-10-30] MEDS ORDERED: INCR1INH INH (12:05)
[2023-10-30] MEDS ORDERED: BASA100I SC (12:05)
[2023-10-30] MEDS ORDERED: FLUT1INH3 PO (12:05)
[2023-10-31] MEDS: cefTRIAXone SOD 1 GM in D5W MINI-BAG PLUS 50 ML IV SCH (01:32)
[2023-10-31] MEDS: ALBUTEROL SULFATE 2.5MG/0.5ML INH NEB SOLN NEB SCH ×6 (04:00→20:19)
[2023-10-31] MEDS: SODIUM CHLORIDE HYPERTONIC 3% 4ML NEB SOL INH SCH ×6 (04:00→20:19)
[2023-10-31 06:00] VITALS: BP_SYST 16; BP_SYST 164; BP_DIAS 72; TEMP 97.2; O2SAT 95
[2023-10-31] MEDS: DOXYCYCLINE HYCLATE 100MG TABLET PO SCH ×2 (06:06→20:02)
[2023-10-31] MEDS: ACETAMINOPHEN TAB 650MG DOSE (2X325MG) PO PRN ×2 (06:12→20:03)
[2023-10-31 06:15] LABS: BASO % 0.3 % (0.0-1.0); EOS % 0.3 % (0.0-3.0); HEMATOCRIT 40.9 % (42.0-52.0); HEMOGLOBIN 13.4 g/dl (13.5-17.5); LYMPH # 0.9 10^3/uL (1.5-5.0); LYMPH % 10.4 % (24.0-44.0); MEAN CORPUSCULAR HEMOGLOBIN 31.3 pg (27.0-33.0); MEAN CORPUSCULAR HGB CONC 32.8 g/dl (32.0-36.5); MEAN CORPUSCULAR VOLUME 95.6 fl (80.0-96.0); MONO # 0.9 10^3/uL (0.0-0.8); MONO % 9.8 % (2.0-8.0); NEUTROPHILS # 6.9 10^3/uL (1.5-8.5); NEUTROPHILS % 78.7 % (36.0-66.0); PLATELET COUNT, AUTOMATED 296 10^3/uL (150-450); RED BLOOD COUNT 4.28 10^6/uL (4.30-6.10); WHITE BLOOD COUNT 8.7 10^3/uL (4.0-10.0)
[2023-10-31 06:38] LABS: BLOOD UREA NITROGEN 15 MG/DL (9-23); CALCIUM LEVEL 8.1 MG/DL (8.3-10.6); CARBON DIOXIDE LEVEL 24 MMOL/L (20-31); CHLORIDE LEVEL 99 MMOL/L (98-107); CREATININE FOR GFR 0.66 MG/DL (0.70-1.30); GLOMERULAR FILTRATION RATE > 60.0 (>49); GLUCOSE, FASTING 208 MG/DL (74-106); POTASSIUM SERUM 4.5 MMOL/L (3.5-5.1); SODIUM LEVEL 129 MMOL/L (136-145)
[2023-10-31] MEDS: SYMBICORT 160/4.5MCG INHALER 6GM INH SCH ×2 (07:57→20:19)
[2023-10-31] MEDS: INSULIN LISPRO (NovoLOG) PER UNIT SC SCH ×7 (08:59→20:04)
[2023-10-31 09:00] VITALS: BP 144/66
[2023-10-31] MEDS: SERTRALINE HCL 25 MG TABLET PO SCH (09:01)
[2023-10-31] MEDS: FOLIC ACID 1MG TAB PO SCH (09:01)
[2023-10-31] MEDS: APIXABAN 5 MG TAB (ELIQUIS) PO SCH ×2 (09:01→20:02)
[2023-10-31] MEDS: MULTIVITAMINS/MINERALS THERAP 1 TAB PO SCH (09:01)
[2023-10-31] MEDS: THIAMINE 100 MG TAB PO SCH ×2 (09:01→20:02)
[2023-10-31] MEDS: ATORVASTATIN 20 MG TAB PO SCH (09:01)
[2023-10-31] MEDS: METOPROLOL TART 25 MG TABLET PO SCH ×2 (09:04→20:03)
[2023-10-31] MEDS: LEVEMIR (INSULIN DETEMIR) 1 UNITS/0.01ML SC SCH (09:05)
[2023-10-31] MEDS: TIOTROPIUM INHALER/CAPSULE (SPIRIVA) INH SCH (11:37)
[2023-10-31 14:17] VITALS: BP 150/84; TEMP 97.6; O2SAT 95
[2023-10-31 19:46] VITALS: BP 152/66; TEMP 98.7; O2SAT 94
[2023-10-31 23:30] VITALS: BP 153/99; TEMP 97.5; O2SAT 96
[2023-11-01] MEDS: ALBUTEROL SULFATE 2.5MG/0.5ML INH NEB SOLN NEB SCH ×3 (00:08→07:37)
[2023-11-01] MEDS: SODIUM CHLORIDE HYPERTONIC 3% 4ML NEB SOL INH SCH ×3 (00:08→07:38)
[2023-11-01] MEDS: cefTRIAXone SOD 1 GM in D5W MINI-BAG PLUS 50 ML IV SCH (01:21)
[2023-11-01 06:00] VITALS: BP 152/88; TEMP 98.6; O2SAT 98
[2023-11-01] MEDS: ACETAMINOPHEN TAB 650MG DOSE (2X325MG) PO PRN ×2 (06:05→20:58)
[2023-11-01 06:08] LABS: BASO % 0.4 % (0.0-1.0); EOS % 0.3 % (0.0-3.0); HEMATOCRIT 45.5 % (42.0-52.0); HEMOGLOBIN 14.9 g/dl (13.5-17.5); LYMPH % 13.7 % (24.0-44.0); MEAN CORPUSCULAR HEMOGLOBIN 31.8 pg (27.0-33.0); MEAN CORPUSCULAR HGB CONC 32.7 g/dl (32.0-36.5); MONO # 0.7 10^3/uL (0.0-0.8); MONO % 9.8 % (2.0-8.0); NEUTROPHILS # 5.6 10^3/uL (1.5-8.5); NEUTROPHILS % 75.3 % (36.0-66.0); PLATELET COUNT, AUTOMATED 298 10^3/uL (150-450); RED BLOOD COUNT 4.69 10^6/uL (4.30-6.10); WHITE BLOOD COUNT 7.4 10^3/uL (4.0-10.0)
[2023-11-01 06:38] LABS: BLOOD UREA NITROGEN 15 MG/DL (9-23); CALCIUM LEVEL 8.2 MG/DL (8.3-10.6); CARBON DIOXIDE LEVEL 27 MMOL/L (20-31); CHLORIDE LEVEL 96 MMOL/L (98-107); CREATININE FOR GFR 0.85 MG/DL (0.70-1.30); GLOMERULAR FILTRATION RATE > 60.0 (>49); GLUCOSE, FASTING 203 MG/DL (74-106); POTASSIUM SERUM 4.5 MMOL/L (3.5-5.1); SODIUM LEVEL 128 MMOL/L (136-145)
[2023-11-01] MEDS: SYMBICORT 160/4.5MCG INHALER 6GM INH SCH ×2 (07:37→19:49)
[2023-11-01] MEDS: TIOTROPIUM INHALER/CAPSULE (SPIRIVA) INH SCH (07:37)
[2023-11-01] MEDS ORDERED: FOLI1TAB11 PO (08:11)
[2023-11-01] MEDS ORDERED: AMOX875T2 PO (08:11)
[2023-11-01] MEDS ORDERED: THIA100TA PO (08:11)
[2023-11-01] MEDS ORDERED: FUROSEMIDE 100MG/10ML VIAL IV ONE (09:00)
[2023-11-01] MEDS: INSULIN LISPRO (NovoLOG) PER UNIT SC SCH ×7 (09:41→20:59)
[2023-11-01] MEDS: LEVEMIR (INSULIN DETEMIR) 1 UNITS/0.01ML SC SCH (09:41)
[2023-11-01] MEDS: APIXABAN 5 MG TAB (ELIQUIS) PO SCH ×2 (09:42→20:58)
[2023-11-01] MEDS: DOXYCYCLINE HYCLATE 100MG TABLET PO SCH ×2 (09:42→20:58)
[2023-11-01] MEDS: ATORVASTATIN 20 MG TAB PO SCH (09:42)
[2023-11-01] MEDS: MULTIVITAMINS/MINERALS THERAP 1 TAB PO SCH (09:42)
[2023-11-01] MEDS: METOPROLOL TART 25 MG TABLET PO SCH ×2 (09:43→20:58)
[2023-11-01] MEDS: FOLIC ACID 1MG TAB PO SCH (09:43)
[2023-11-01] MEDS: SERTRALINE HCL 25 MG TABLET PO SCH (09:43)
[2023-11-01] MEDS ORDERED: FLUTICASONE PROP 0.05% NASAL SPRAY 16 GM (FLONASE) PRN (11:40)
[2023-11-01] MEDS: IPRATROPIUM 0.5MG/ALBUTEROL 2.5MG INH SOL UD 3ML (DUONEB) NEB PRN ×2 (11:57→19:50)
[2023-11-01] MEDS: CETIRIZINE (ZyrTEC) 10 MG TAB PO SCH (12:15)
[2023-11-01 14:00] VITALS: BP 145/92; TEMP 98.1; O2SAT 94
[2023-11-01 17:08] LABS: BODY FLUID CULTURE Not indicated. (.); LEGIONELLA ANTIGEN URINE Negative (Negative); ORGANISM ID Not indicated. (.); SPECIMEN SOURCE Urine (.); URINE STREP PNEUMONIAE ANTIGEN Negative (Negative)
[2023-11-01] MEDS: TORSEMIDE 20 MG TAB PO SCH (18:02)
[2023-11-01 20:46] VITALS: BP 147/92; TEMP 98.6; O2SAT 96
[2023-11-01] MEDS: CEFDINIR 300 MG CAP (OMNICEF) PO SCH (20:58)
[2023-11-01] MEDS ORDERED: MAALOX 30 ML SUSP *UDC PO PRN (21:00)
[2023-11-01 22:37] VITALS: BP 130/88
[2023-11-02] MEDS: IPRATROPIUM 0.5MG/ALBUTEROL 2.5MG INH SOL UD 3ML (DUONEB) NEB PRN ×3 (03:54→07:40)
[2023-11-02 05:49] LABS: BASO # 0.1 10^3/uL (0.0-0.2); BASO % 0.8 % (0.0-1.0); EOS # 0.1 10^3/uL (0.0-0.5); EOS % 0.9 % (0.0-3.0); HEMATOCRIT 43.7 % (42.0-52.0); HEMOGLOBIN 14.8 g/dl (13.5-17.5); LYMPH # 1.8 10^3/uL (1.5-5.0); LYMPH % 26.8 % (24.0-44.0); MEAN CORPUSCULAR HEMOGLOBIN 32.1 pg (27.0-33.0); MEAN CORPUSCULAR HGB CONC 33.9 g/dl (32.0-36.5); MEAN CORPUSCULAR VOLUME 94.8 fl (80.0-96.0); MONO # 0.8 10^3/uL (0.0-0.8); MONO % 12.2 % (2.0-8.0); NEUTROPHILS # 3.9 10^3/uL (1.5-8.5); NEUTROPHILS % 58.7 % (36.0-66.0); PLATELET COUNT, AUTOMATED 291 10^3/uL (150-450); RED BLOOD COUNT 4.61 10^6/uL (4.30-6.10); WHITE BLOOD COUNT 6.6 10^3/uL (4.0-10.0)
[2023-11-02 06:10] VITALS: BP 147/95; TEMP 97.9; O2SAT 98
[2023-11-02 06:13] LABS: BLOOD UREA NITROGEN 18 MG/DL (9-23); CALCIUM LEVEL 7.8 MG/DL (8.3-10.6); CARBON DIOXIDE LEVEL 28 MMOL/L (20-31); CHLORIDE LEVEL 94 MMOL/L (98-107); CREATININE FOR GFR 0.81 MG/DL (0.70-1.30); GLOMERULAR FILTRATION RATE > 60.0 (>49); GLUCOSE, FASTING 214 MG/DL (74-106); POTASSIUM SERUM 4.1 MMOL/L (3.5-5.1); SODIUM LEVEL 130 MMOL/L (136-145)
[2023-11-02] MEDS: TIOTROPIUM INHALER/CAPSULE (SPIRIVA) INH SCH (07:39)
[2023-11-02] MEDS: SYMBICORT 160/4.5MCG INHALER 6GM INH SCH (07:41)
[2023-11-02] MEDS ORDERED: CALCIUM CARBONATE 500 MG CHEW U/D PO PRN (07:45)
[2023-11-02] MEDS: LEVEMIR (INSULIN DETEMIR) 1 UNITS/0.01ML SC SCH (08:15)
[2023-11-02] MEDS: INSULIN LISPRO (NovoLOG) PER UNIT SC SCH ×2 (08:16)
[2023-11-02] MEDS: ATORVASTATIN 20 MG TAB PO SCH (08:16)
[2023-11-02] MEDS: SERTRALINE HCL 25 MG TABLET PO SCH (08:17)
[2023-11-02] MEDS: MULTIVITAMINS/MINERALS THERAP 1 TAB PO SCH (08:17)
[2023-11-02] MEDS: FOLIC ACID 1MG TAB PO SCH (08:17)
[2023-11-02] MEDS: CEFDINIR 300 MG CAP (OMNICEF) PO SCH (08:17)
[2023-11-02] MEDS: CETIRIZINE (ZyrTEC) 10 MG TAB PO SCH (08:17)
[2023-11-02] MEDS: APIXABAN 5 MG TAB (ELIQUIS) PO SCH (08:17)
[2023-11-02] MEDS: TORSEMIDE 20 MG TAB PO SCH (08:17)
[2023-11-02] MEDS: DOXYCYCLINE HYCLATE 100MG TABLET PO SCH (08:17)
[2023-11-02 08:21] VITALS: BP 134/84
[2023-11-02] MEDS: METOPROLOL TART 25 MG TABLET PO SCH (08:21)
[2023-11-02] MEDS ORDERED: PANTOPRAZOLE 40MG TAB (PROTONIX) PO SCH ×2 (09:00)
[2023-11-02] MEDS ORDERED: CLAR10CA3 PO (09:56)
== END 2023-11-02 11:10 | disposition home or self-care (01) | DRG 201 ==
LOC: EDBD 18:54 → EDSEX 18:54 → M ED 18:54 → M ED INP 10-29 02:05 → ENRESERV 10-29 02:31 → M PCU 10-29 04:45 → M MS4PR 10-30 22:45 → M MSPAV 10-31 23:07
PROVIDERS: ADMIT Family Medicine; ATTEND Internal Medicine Nephrology
DX: I48.0 Paroxysmal atrial fibrillation (principal); J18.9 Pneumonia, unspecified organism; I11.0 Hypertensive heart disease with heart failure; J44.0 Chronic obstructive pulmonary disease with (acute) lower respiratory infection; I27.20 Pulmonary hypertension, unspecified; I50.32 Chronic diastolic (congestive) heart failure; E87.1 Hypo-osmolality and hyponatremia; E78.5 Hyperlipidemia, unspecified; I25.10 Atherosclerotic heart disease of native coronary artery without angina pectoris; F10.129 Alcohol abuse with intoxication, unspecified; E66.9 Obesity, unspecified; F43.20 Adjustment disorder, unspecified; E11.51 Type 2 diabetes mellitus with diabetic peripheral angiopathy without gangrene; I73.9 Peripheral vascular disease, unspecified; E11.42 Type 2 diabetes mellitus with diabetic polyneuropathy; F41.9 Anxiety disorder, unspecified; F32.A Depression, unspecified; R19.7 Diarrhea, unspecified; T36.95XA Adverse effect of unspecified systemic antibiotic, initial encounter; Z59.00 Homelessness unspecified; Z87.891 Personal history of nicotine dependence; Z79.01 Long term (current) use of anticoagulants; Z79.4 Long term (current) use of insulin; Z79.84 Long term (current) use of oral hypoglycemic drugs; Z79.899 Other long term (current) drug therapy; Z20.822 Contact with and (suspected) exposure to COVID-19

== ENCOUNTER → 2023-12-04 | Outpatient (CLI) | payer OTHER ==
[~2023-12-04] MED LIST changes: +ALBU8.5H INH; +CLAR10CA3 PO; +FLON1SPR; +FLUT1INH3 PO; +FOLI1TAB11 PO; +METF10004 PO; +MONT10TA97 PO; +SERT25TA21 PO; +THIA100TA PO
[2023-12-04 14:38] LABS: ALBUMIN 2.9 G/DL (3.2-5.2); ALKALINE PHOSPHATASE 94 U/L (46-116); ALT/SGPT 34 U/L (7.0-40); AST/SGOT 22 U/L (<34); BILIRUBIN,TOTAL 0.4 MG/DL (0.3-1.2); BLOOD UREA NITROGEN 23 MG/DL (9-23); CALCIUM LEVEL 9.2 MG/DL (8.3-10.6); CARBON DIOXIDE LEVEL 29 MMOL/L (20-31); CHLORIDE LEVEL 98 MMOL/L (98-107); CREATININE FOR GFR 0.96 MG/DL (0.70-1.30); GLOMERULAR FILTRATION RATE > 60.0 (>49); GLUCOSE, FASTING 327 MG/DL (74-106); MAGNESIUM LEVEL 1.8 MG/DL (1.8-2.4); POTASSIUM SERUM 4.9 MMOL/L (3.5-5.1); SODIUM LEVEL 134 MMOL/L (136-145); TOTAL PROTEIN 6.6 G/DL (5.7-8.2)
[2023-12-04 14:43] LABS: BASO # 0.1 10^3/uL (0.0-0.2); BASO % 0.5 % (0.0-1.0); EOS # 0.2 10^3/uL (0.0-0.5); EOS % 2.1 % (0.0-3.0); HEMATOCRIT 43.1 % (42.0-52.0); HEMOGLOBIN 14.1 g/dl (13.5-17.5); LYMPH # 1.8 10^3/uL (1.5-5.0); MEAN CORPUSCULAR HEMOGLOBIN 31.9 pg (27.0-33.0); MEAN CORPUSCULAR HGB CONC 32.7 g/dl (32.0-36.5); MEAN CORPUSCULAR VOLUME 97.5 fl (80.0-96.0); MONO # 0.8 10^3/uL (0.0-0.8); MONO % 6.9 % (2.0-8.0); NEUTROPHILS # 8.3 10^3/uL (1.5-8.5); NEUTROPHILS % 74.2 % (36.0-66.0); PLATELET COUNT, AUTOMATED 349 10^3/uL (150-450); RED BLOOD COUNT 4.42 10^6/uL (4.30-6.10); WHITE BLOOD COUNT 11.1 10^3/uL (4.0-10.0)
== END ==
LOC: M PLALAB 10:37
PROVIDERS: ATTEND Nurse Practitioner Family
DX: I50.9 Heart failure, unspecified (principal)

== ENCOUNTER 2023-12-18 09:08 | Emergency (ER) | payer OTHER ==
[~2023-12-18] VITALS: Ht 170.2 cm; Wt 119.4 kg
[2023-12-18 09:27] VITALS: TEMP 99.1
[2023-12-18 09:50] LABS: BASO # 0.1 10^3/uL (0.0-0.2); BASO % 0.6 % (0.0-1.0); EOS # 0.2 10^3/uL (0.0-0.5); HEMATOCRIT 44.5 % (42.0-52.0); HEMOGLOBIN 14.8 g/dl (13.5-17.5); LYMPH # 2.3 10^3/uL (1.5-5.0); LYMPH % 22.2 % (24.0-44.0); MEAN CORPUSCULAR HEMOGLOBIN 31.6 pg (27.0-33.0); MEAN CORPUSCULAR HGB CONC 33.3 g/dl (32.0-36.5); MEAN CORPUSCULAR VOLUME 94.9 fl (80.0-96.0); MONO # 0.6 10^3/uL (0.0-0.8); MONO % 5.3 % (2.0-8.0); NEUTROPHILS # 7.2 10^3/uL (1.5-8.5); NEUTROPHILS % 69.5 % (36.0-66.0); PLATELET COUNT, AUTOMATED 348 10^3/uL (150-450); RED BLOOD COUNT 4.69 10^6/uL (4.30-6.10); WHITE BLOOD COUNT 10.4 10^3/uL (4.0-10.0)
[2023-12-18 09:57] LABS: ERYTHROCYTE SEDIMENTATION RATE 81 mm/hr (0-20)
[2023-12-18 10:01] LABS: INR 1.27; PROTHROMBIN TIME 15.5 SECONDS (12.5-14.5)
[2023-12-18 10:02] LABS: PARTIAL THROMBOPLASTIN TIME 27.1 SECONDS (24.8-34.2)
[2023-12-18 10:21] LABS: ALKALINE PHOSPHATASE 87 U/L (46-116); ALT/SGPT 33 U/L (7.0-40); AST/SGOT 23 U/L (<34); BILIRUBIN,DIRECT 0.1 MG/DL (<0.4); BILIRUBIN,TOTAL 0.4 MG/DL (0.3-1.2); BLOOD UREA NITROGEN 25 MG/DL (9-23); CALCIUM LEVEL 8.5 MG/DL (8.3-10.6); CARBON DIOXIDE LEVEL 25 MMOL/L (20-31); CHLORIDE LEVEL 98 MMOL/L (98-107); CREATININE FOR GFR 0.89 MG/DL (0.70-1.30); GLOMERULAR FILTRATION RATE > 60.0 (>49); GLUCOSE, FASTING 296 MG/DL (74-106); POTASSIUM SERUM 4.7 MMOL/L (3.5-5.1); SODIUM LEVEL 131 MMOL/L (136-145); TOTAL PROTEIN 7.1 G/DL (5.7-8.2)
[2023-12-18 10:33] LABS: PROCALCITONIN 0.05 ng/ml
[2023-12-18] MEDS ORDERED: FOLI1TAB11 PO (11:41)
[2023-12-18] MEDS ORDERED: CLAR10CA3 PO (11:41)
[2023-12-18] MEDS ORDERED: FLUT1INH3 INH (11:41)
[2023-12-18] MEDS ORDERED: THIA100T7 PO (11:41)
[2023-12-18] MEDS ORDERED: BASA100I SC (11:41)
[2023-12-18 12:01] VITALS: BP 148/65; O2SAT 95
== END 2023-12-18 12:43 | disposition home or self-care (01) ==
LOC: M ED 09:08
DX: E11.65 Type 2 diabetes mellitus with hyperglycemia (principal); M25.571 Pain in right ankle and joints of right foot; M25.572 Pain in left ankle and joints of left foot; I25.2 Old myocardial infarction; I10 Essential (primary) hypertension; E78.5 Hyperlipidemia, unspecified; J44.9 Chronic obstructive pulmonary disease, unspecified; Z86.79 Personal history of other diseases of the circulatory system; Z79.01 Long term (current) use of anticoagulants; Z79.52 Long term (current) use of systemic steroids; Z79.02 Long term (current) use of antithrombotics/antiplatelets; Z79.811 Long term (current) use of aromatase inhibitors; Z79.4 Long term (current) use of insulin; Z79.83 Long term (current) use of bisphosphonates; Z79.899 Other long term (current) drug therapy

== ENCOUNTER → 2023-12-27 | Outpatient (CLI) | payer OTHER ==
[~2023-12-27] MED LIST changes: +FLUT1INH3 INH; +THIA100T7 PO
[2023-12-27 14:16] LABS: HEMOGLOBIN A1c 12.9 % (4.0-6.0)
[2023-12-27 14:24] LABS: ALBUMIN 3.6 G/DL (3.2-5.2); ALKALINE PHOSPHATASE 78 U/L (46-116); ALT/SGPT 36 U/L (7.0-40); AST/SGOT 23 U/L (<34); BILIRUBIN,TOTAL 0.5 MG/DL (0.3-1.2); BLOOD UREA NITROGEN 33 MG/DL (9-23); CALCIUM LEVEL 8.8 MG/DL (8.3-10.6); CARBON DIOXIDE LEVEL 27 MMOL/L (20-31); CHLORIDE LEVEL 96 MMOL/L (98-107); CREATININE FOR GFR 0.93 MG/DL (0.70-1.30); GLOMERULAR FILTRATION RATE > 60.0 (>49); GLUCOSE, FASTING 299 MG/DL (74-106); POTASSIUM SERUM 4.6 MMOL/L (3.5-5.1); SODIUM LEVEL 128 MMOL/L (136-145); TOTAL PROTEIN 6.9 G/DL (5.7-8.2)
== END ==
LOC: M PLALAB 09:11
PROVIDERS: ATTEND Nurse Practitioner Family
DX: E11.8 Type 2 diabetes mellitus with unspecified complications (principal)

== ENCOUNTER 2024-01-14 22:44 | Inpatient (IN) | payer OTHER ==
[~2024-01-14] VITALS: Ht 177.8 cm; Wt 125.0 kg
[2024-01-14] MEDS: LIDOCAINE 2% MDV 20ML VIAL SC ONE (23:56)
[2024-01-15 00:27] LABS: BASO # 0.1 10^3/uL (0.0-0.2); BASO % 0.4 % (0.0-1.0); EOS # 0.2 10^3/uL (0.0-0.5); HEMOGLOBIN 13.9 g/dl (13.5-17.5); LYMPH # 1.7 10^3/uL (1.5-5.0); LYMPH % 10.4 % (24.0-44.0); MEAN CORPUSCULAR HEMOGLOBIN 31.4 pg (27.0-33.0); MEAN CORPUSCULAR HGB CONC 33.1 g/dl (32.0-36.5); MEAN CORPUSCULAR VOLUME 94.8 fl (80.0-96.0); MONO # 1.3 10^3/uL (0.0-0.8); MONO % 7.5 % (2.0-8.0); NEUTROPHILS # 13.2 10^3/uL (1.5-8.5); NEUTROPHILS % 79.7 % (36.0-66.0); PLATELET COUNT, AUTOMATED 330 10^3/uL (150-450); RED BLOOD COUNT 4.43 10^6/uL (4.30-6.10); WHITE BLOOD COUNT 16.6 10^3/uL (4.0-10.0)
[2024-01-15 00:33] LABS: INR 1.25; PARTIAL THROMBOPLASTIN TIME 33.7 SECONDS (24.8-34.2); PROTHROMBIN TIME 15.3 SECONDS (12.5-14.5)
[2024-01-15 00:44] LABS: BLOOD UREA NITROGEN 28 MG/DL (9-23); CALCIUM LEVEL 7.8 MG/DL (8.3-10.6); CARBON DIOXIDE LEVEL 26 MMOL/L (20-31); CHLORIDE LEVEL 99 MMOL/L (98-107); CREATININE FOR GFR 0.91 MG/DL (0.70-1.30); GLOMERULAR FILTRATION RATE > 60.0 (>49); GLUCOSE, FASTING 347 MG/DL (74-106); MAGNESIUM LEVEL 1.7 MG/DL (1.8-2.4); POTASSIUM SERUM 4.6 MMOL/L (3.5-5.1); SODIUM LEVEL 131 MMOL/L (136-145)
[2024-01-15 01:06] LABS: RSV AMPLIFICATION NEGATIVE (NEGATIVE)
[2024-01-15 01:28] LABS: SOURCE, BODY FLUID RT KNEE; SYNOVIAL FLUID COLOR RED (COLORLESS)
[2024-01-15] MEDS ORDERED: VANCOMYCIN HCL 1,500 MG in IV FLUID PLACE HOLDER 1 EA IV ONE (02:30)
[2024-01-15] MEDS ORDERED: HOME MED LIST COMPLETE! XX SCH (03:05)
[2024-01-15] MEDS: VANCOMYCIN HCL 1,000 MG, VIAL MATE ADAPTER 1 EACH in D5W 250 ML IV ONE ×2 (03:25→04:51)
[2024-01-15] MEDS: MORPHINE 4 MG/ML 1ML VIAL IV ONE (03:26)
[2024-01-15] MEDS ORDERED: GLUCOSE 4GM CHEW TABLET PO PRN (03:40)
[2024-01-15] MEDS ORDERED: ALBUTEROL 90 MCG/ACT 8GM HFA INHALER INH PRN (03:40)
[2024-01-15] MEDS ORDERED: ACETAMINOPHEN TAB 650MG DOSE (2X325MG) PO PRN (03:40)
[2024-01-15] MEDS ORDERED: GLUCAGON INJ 1MG VIAL SC PRN (03:40)
[2024-01-15] MEDS ORDERED: DEXTROSE 50% 50ML SYRINGE IV PRN (03:40)
[2024-01-15] MEDS ORDERED: MORPHINE 2 MG/ML 1ML VIAL IV PRN (03:40)
[2024-01-15] MEDS: NORCO, ANEXSIA 5/325MG TABLET (HYDROcodone/ACETAMINOPHEN) PO PRN (04:20)
[2024-01-15] MEDS: HumuLIN R (REGULAR) INSULIN (NovoLIN R) **100U/ML** PER UNIT IV STA ×2 (04:20→06:52)
[2024-01-15 06:31] LABS: ALBUMIN 2.6 G/DL (3.2-5.2); ALKALINE PHOSPHATASE 76 U/L (46-116); ALT/SGPT 23 U/L (7.0-40); AST/SGOT 13 U/L (<34); BILIRUBIN,TOTAL 0.5 MG/DL (0.3-1.2); BLOOD UREA NITROGEN 27 MG/DL (9-23); CALCIUM LEVEL 7.6 MG/DL (8.3-10.6); CARBON DIOXIDE LEVEL 24 MMOL/L (20-31); CHLORIDE LEVEL 97 MMOL/L (98-107); CREATININE FOR GFR 0.95 MG/DL (0.70-1.30); GLOMERULAR FILTRATION RATE > 60.0 (>49); GLUCOSE, FASTING 407 MG/DL (74-106); POTASSIUM SERUM 4.7 MMOL/L (3.5-5.1); SODIUM LEVEL 128 MMOL/L (136-145); TOTAL PROTEIN 6.1 G/DL (5.7-8.2)
[2024-01-15] MEDS: ATORVASTATIN 20 MG TAB PO SCH (08:10)
[2024-01-15] MEDS: INSULIN LISPRO (NovoLOG) PER UNIT SC SCH ×2 (08:11→23:06)
[2024-01-15] MEDS: METOPROLOL SUCC *XL* 25MG TAB (TopROL *XL*) PO SCH (08:12)
[2024-01-15] MEDS: MONTELUKAST 10 MG TAB PO SCH (08:12)
[2024-01-15] MEDS: FOLIC ACID 1MG TAB PO SCH (08:12)
[2024-01-15] MEDS: SERTRALINE HCL 25 MG TABLET PO SCH (08:13)
[2024-01-15] MEDS: THIAMINE 100 MG TAB PO SCH (08:13)
[2024-01-15] MEDS: LEVEMIR (INSULIN DETEMIR) 1 UNITS/0.01ML SC SCH (08:23)
[2024-01-15] MEDS: ADVAIR HFA 115/21MCG INHALER INH SCH (08:45)
[2024-01-15] MEDS: TIOTROPIUM INHALER/CAPSULE (SPIRIVA) INH SCH (08:45)
[2024-01-15] MEDS ORDERED: LEVEMIR (INSULIN DETEMIR) 1 UNITS/0.01ML SC SCH (09:00)
[2024-01-15 11:41] LABS: ERYTHROCYTE SEDIMENTATION RATE 98 mm/hr (0-20)
[2024-01-15 14:26] VITALS: BP 150/70; TEMP 97.8; O2SAT 98
[2024-01-15] MEDS: OMEPRAZOLE 20MG CAP PO PRN (18:38)
[2024-01-15 20:26] VITALS: BP 146/60; TEMP 97.3; O2SAT 98
[2024-01-16] MEDS: NORCO, ANEXSIA 5/325MG TABLET (HYDROcodone/ACETAMINOPHEN) PO PRN (00:47)
[2024-01-16 05:34] VITALS: BP 151/88; TEMP 97.3; O2SAT 98
[2024-01-16 07:48] LABS: BASO % 0.3 % (0.0-1.0); EOS # 0.2 10^3/uL (0.0-0.5); EOS % 1.3 % (0.0-3.0); HEMATOCRIT 41.7 % (42.0-52.0); HEMOGLOBIN 13.7 g/dl (13.5-17.5); LYMPH # 1.6 10^3/uL (1.5-5.0); LYMPH % 11.1 % (24.0-44.0); MEAN CORPUSCULAR HEMOGLOBIN 31.4 pg (27.0-33.0); MEAN CORPUSCULAR HGB CONC 32.9 g/dl (32.0-36.5); MEAN CORPUSCULAR VOLUME 95.4 fl (80.0-96.0); MONO # 0.9 10^3/uL (0.0-0.8); MONO % 6.4 % (2.0-8.0); NEUTROPHILS # 11.4 10^3/uL (1.5-8.5); NEUTROPHILS % 80.5 % (36.0-66.0); PLATELET COUNT, AUTOMATED 351 10^3/uL (150-450); RED BLOOD COUNT 4.37 10^6/uL (4.30-6.10); WHITE BLOOD COUNT 14.1 10^3/uL (4.0-10.0)
[2024-01-16 08:37] LABS: ALBUMIN 2.6 G/DL (3.2-5.2); ALKALINE PHOSPHATASE 79 U/L (46-116); ALT/SGPT 23 U/L (7.0-40); AST/SGOT 15 U/L (<34); BILIRUBIN,TOTAL 0.8 MG/DL (0.3-1.2); BLOOD UREA NITROGEN 19 MG/DL (9-23); CALCIUM LEVEL 7.6 MG/DL (8.3-10.6); CARBON DIOXIDE LEVEL 27 MMOL/L (20-31); CHLORIDE LEVEL 96 MMOL/L (98-107); CREATININE FOR GFR 0.84 MG/DL (0.70-1.30); GLOMERULAR FILTRATION RATE > 60.0 (>49); GLUCOSE, FASTING 226 MG/DL (74-106); MAGNESIUM LEVEL 1.8 MG/DL (1.8-2.4); POTASSIUM SERUM 4.5 MMOL/L (3.5-5.1); SODIUM LEVEL 130 MMOL/L (136-145); TOTAL PROTEIN 6.4 G/DL (5.7-8.2)
[2024-01-16 14:40] VITALS: BP 148/74; TEMP 97.5; O2SAT 98
[2024-01-16] MEDS ORDERED: VANCOMYCIN HCL 1,000 MG, VIAL MATE ADAPTER 1 EACH in D5W 250 ML IV SCH (15:45)
[2024-01-16] MEDS: cefTRIAXone SOD 1 GM in D5W MINI-BAG PLUS 50 ML IV SCH (17:29)
[2024-01-16] MEDS: methylPREDNISolone 125MG 2ML VIAL IV ONE (17:29)
[2024-01-16] MEDS: VANCOMYCIN HCL 1,000 MG, VIAL MATE ADAPTER 1 EACH in D5W 250 ML IV ONE ×2 (19:55→21:13)
[2024-01-16] MEDS: HEPARIN SOD (PORCINE) 5000UNITS/ML 1ML VIAL/SYRINGE SQ SCH (21:13)
[2024-01-16 21:22] VITALS: BP 172/96; TEMP 96.8; O2SAT 97
[2024-01-17] MEDS: VANCOMYCIN HCL 750 MG, VIAL MATE ADAPTER 1 EACH in D5W 250 ML IV SCH ×2 (05:15→06:40)
[2024-01-17 05:59] VITALS: BP 171/97; TEMP 97.2; O2SAT 98
[2024-01-17 06:47] VITALS: BP 140/70
[2024-01-17 07:15] LABS: BASO % 0.1 % (0.0-1.0); HEMATOCRIT 40.9 % (42.0-52.0); HEMOGLOBIN 13.6 g/dl (13.5-17.5); LYMPH # 0.8 10^3/uL (1.5-5.0); MEAN CORPUSCULAR HEMOGLOBIN 31.3 pg (27.0-33.0); MEAN CORPUSCULAR HGB CONC 33.3 g/dl (32.0-36.5); MEAN CORPUSCULAR VOLUME 94.2 fl (80.0-96.0); MONO # 0.3 10^3/uL (0.0-0.8); MONO % 1.9 % (2.0-8.0); NEUTROPHILS # 14.3 10^3/uL (1.5-8.5); NEUTROPHILS % 92.4 % (36.0-66.0); PLATELET COUNT, AUTOMATED 364 10^3/uL (150-450); RED BLOOD COUNT 4.34 10^6/uL (4.30-6.10); WHITE BLOOD COUNT 15.5 10^3/uL (4.0-10.0)
[2024-01-17 07:39] LABS: BLOOD UREA NITROGEN 26 MG/DL (9-23); CALCIUM LEVEL 7.9 MG/DL (8.3-10.6); CARBON DIOXIDE LEVEL 25 MMOL/L (20-31); CHLORIDE LEVEL 96 MMOL/L (98-107); GLOMERULAR FILTRATION RATE > 60.0 (>49); GLUCOSE, FASTING 355 MG/DL (74-106); POTASSIUM SERUM 5.2 MMOL/L (3.5-5.1); SODIUM LEVEL 129 MMOL/L (136-145)
[2024-01-17 08:05] VITALS: BP 162/100
[2024-01-17 08:46] LABS: VANCOMYCIN RANDOM 28.8 UG/ML
[2024-01-17] MEDS: PATIROMER SORBITEX CALCIUM 8.4 GM POWDER PACKET (VELTASSA) PO ONE (09:18)
[2024-01-17] MEDS: LEVEMIR (INSULIN DETEMIR) 1 UNITS/0.01ML SC SCH ×2 (09:18→20:44)
[2024-01-17] MEDS: methylPREDNISolone 40MG 1ML VIAL IV SCH (09:18)
[2024-01-17] MEDS: FUROSEMIDE 40 MG TAB PO SCH (12:40)
[2024-01-17] MEDS: APIXABAN 5 MG TAB (ELIQUIS) PO SCH (12:40)
[2024-01-17 14:00] VITALS: TEMP 97.5; O2SAT 96
[2024-01-17 19:51] VITALS: BP 133/78; TEMP 97.5; O2SAT 97
[2024-01-18 06:01] VITALS: BP 168/62; TEMP 97.3; O2SAT 97
[2024-01-18 06:06] LABS: VANCOMYCIN LEVEL TROUGH 11.3 UG/ML (10.0-20.0)
[2024-01-18] MEDS ORDERED: KETOROLAC 30 MG/ML 1ML VIAL IV PRN (08:05)
[2024-01-18] MEDS ORDERED: oxyCODONE 5MG TAB PO PRN (08:05)
[2024-01-18 08:08] VITALS: BP 176/90
[2024-01-18] MEDS: predniSONE 20 MG TAB PO SCH (08:10)
[2024-01-18] MEDS: LEVEMIR (INSULIN DETEMIR) 1 UNITS/0.01ML SC SCH ×2 (08:10→22:11)
[2024-01-18 08:37] LABS: BLOOD UREA NITROGEN 29 MG/DL (9-23); CALCIUM LEVEL 7.7 MG/DL (8.3-10.6); CARBON DIOXIDE LEVEL 26 MMOL/L (20-31); CHLORIDE LEVEL 99 MMOL/L (98-107); CREATININE FOR GFR 0.84 MG/DL (0.70-1.30); GLOMERULAR FILTRATION RATE > 60.0 (>49); GLUCOSE, FASTING 361 MG/DL (74-106); POTASSIUM SERUM 5.3 MMOL/L (3.5-5.1); SODIUM LEVEL 130 MMOL/L (136-145)
[2024-01-18 08:58] LABS: HEMATOCRIT 39.5 % (42.0-52.0); HEMOGLOBIN 13.2 g/dl (13.5-17.5); MEAN CORPUSCULAR HEMOGLOBIN 31.5 pg (27.0-33.0); MEAN CORPUSCULAR HGB CONC 33.4 g/dl (32.0-36.5); MEAN CORPUSCULAR VOLUME 94.3 fl (80.0-96.0); PLATELET COUNT, AUTOMATED 402 10^3/uL (150-450); RED BLOOD COUNT 4.19 10^6/uL (4.30-6.10); WHITE BLOOD COUNT 18.6 10^3/uL (4.0-10.0)
[2024-01-18] MEDS: LIDOCAINE 5% (LIDODERM) PATCH TD SCH (09:23)
[2024-01-18] MEDS: DICLOFENAC EPOLAMINE 1.3% PATCH TOP SCH (09:23)
[2024-01-18] MEDS: ACETAMINOPHEN 500 MG TAB PO SCH (09:23)
[2024-01-18] MEDS: GABAPENTIN 100 MG CAP PO SCH (09:23)
[2024-01-18] MEDS: CYCLOBENZAPRINE 5MG TABLET PO SCH (09:23)
[2024-01-18] MEDS: PATIROMER SORBITEX CALCIUM 8.4 GM POWDER PACKET (VELTASSA) PO ONE (12:36)
[2024-01-18] MEDS: KETOROLAC 30 MG/ML 1ML VIAL IV SCH (12:37)
[2024-01-18 14:00] VITALS: BP 122/73; TEMP 97.3; O2SAT 94
[2024-01-18 20:00] VITALS: BP 134/78; TEMP 97.3; O2SAT 96
[2024-01-18] MEDS: oxyCODONE 5MG TAB PO PRN (23:39)
[2024-01-19 04:47] VITALS: BP 140/75; TEMP 97.3; O2SAT 98
[2024-01-19 06:44] LABS: BLOOD UREA NITROGEN 40 MG/DL (9-23); CALCIUM LEVEL 8.4 MG/DL (8.3-10.6); CARBON DIOXIDE LEVEL 26 MMOL/L (20-31); CHLORIDE LEVEL 94 MMOL/L (98-107); CREATININE FOR GFR 0.98 MG/DL (0.70-1.30); GLOMERULAR FILTRATION RATE > 60.0 (>49); GLUCOSE, FASTING 301 MG/DL (74-106); POTASSIUM SERUM 4.6 MMOL/L (3.5-5.1); SODIUM LEVEL 126 MMOL/L (136-145)
[2024-01-19] MEDS: INSULIN LISPRO (NovoLOG) PER UNIT SC SCH (08:41)
[2024-01-19 14:20] VITALS: BP 140/75; TEMP 97.5; O2SAT 97
[2024-01-19 20:35] VITALS: BP 178/94; TEMP 97.8; O2SAT 98
[2024-01-19] MEDS: LEVEMIR (INSULIN DETEMIR) 1 UNITS/0.01ML SC SCH (21:04)
[2024-01-20 06:20] VITALS: BP 182/110; TEMP 97.8; O2SAT 97
[2024-01-20 07:23] VITALS: BP 170/82
[2024-01-20 07:23] LABS: HEMATOCRIT 40.5 % (42.0-52.0); HEMOGLOBIN 13.4 g/dl (13.5-17.5); MEAN CORPUSCULAR HEMOGLOBIN 30.9 pg (27.0-33.0); MEAN CORPUSCULAR HGB CONC 33.1 g/dl (32.0-36.5); MEAN CORPUSCULAR VOLUME 93.5 fl (80.0-96.0); PLATELET COUNT, AUTOMATED 453 10^3/uL (150-450); RED BLOOD COUNT 4.33 10^6/uL (4.30-6.10); WHITE BLOOD COUNT 14.5 10^3/uL (4.0-10.0)
[2024-01-20 07:45] VITALS: BP 170/82
[2024-01-20 07:47] LABS: BLOOD UREA NITROGEN 35 MG/DL (9-23); CARBON DIOXIDE LEVEL 27 MMOL/L (20-31); CHLORIDE LEVEL 97 MMOL/L (98-107); CREATININE FOR GFR 0.96 MG/DL (0.70-1.30); GLOMERULAR FILTRATION RATE > 60.0 (>49); GLUCOSE, FASTING 191 MG/DL (74-106); POTASSIUM SERUM 4.5 MMOL/L (3.5-5.1); SODIUM LEVEL 129 MMOL/L (136-145)
[2024-01-20 08:08] LABS: ALBUMIN 2.7 G/DL (3.2-5.2); ALKALINE PHOSPHATASE 74 U/L (46-116); ALT/SGPT 35 U/L (7.0-40); AST/SGOT 13 U/L (<34); BILIRUBIN,DIRECT 0.2 MG/DL (<0.4); BILIRUBIN,TOTAL 0.5 MG/DL (0.3-1.2); TOTAL PROTEIN 6.4 G/DL (5.7-8.2)
[2024-01-20] MEDS: CHLORTHALIDONE 25 MG TAB PO SCH (09:45)
[2024-01-20 09:46] VITALS: BP 178/98
[2024-01-20] MEDS ORDERED: OXYC-517 PO (10:20)
[2024-01-20] MEDS ORDERED: GABA-1171 PO (10:20)
[2024-01-20] MEDS ORDERED: LIDO5TD TD (10:20)
[2024-01-20] MEDS ORDERED: CYCL5TAB PO (10:20)
[2024-01-20] MEDS ORDERED: CHLO25TA PO (10:20)
[2024-01-20] MEDS ORDERED: ACETAMINOPHEN 500 MG TAB PO SCH (12:00)
== END 2024-01-20 11:30 | disposition home or self-care (01) | DRG 351 ==
LOC: M ED 22:44 → EDBD 22:44 → M ED INP 01-15 03:38 → ENRESERV 01-15 12:48 → M MS5PR 01-15 14:00 → OBSVTOIN 01-16 02:51
PROVIDERS: ADMIT Internal Medicine; ATTEND Student in an Organized Health Care Education/Training Program
DX: M25.061 Hemarthrosis, right knee (principal); E22.2 Syndrome of inappropriate secretion of antidiuretic hormone; E87.1 Hypo-osmolality and hyponatremia; E87.5 Hyperkalemia; D72.829 Elevated white blood cell count, unspecified; I10 Essential (primary) hypertension; E11.9 Type 2 diabetes mellitus without complications; F32.A Depression, unspecified; I48.0 Paroxysmal atrial fibrillation; K21.9 Gastro-esophageal reflux disease without esophagitis; J44.9 Chronic obstructive pulmonary disease, unspecified; Z79.899 Other long term (current) drug therapy; Z79.4 Long term (current) use of insulin; E78.00 Pure hypercholesterolemia, unspecified; Z87.891 Personal history of nicotine dependence